=== PATIENT | female | born 1950 | race Caucasian/White ===

== ENCOUNTER → 2016-12-17 | Outpatient (CLI) | payer MEDICARE, OTHER | END | disposition home or self-care (01) | LOC: XY 10:06 | DX: I63.8 Other cerebral infarction (principal) | CPT/HCPCS: 93886 ==

== ENCOUNTER → 2016-12-31 | Outpatient (CLI) | payer MEDICARE, OTHER ==
[2016-12-31 13:59] LABS: Basophils # (auto) 0.1 uL; Basophils % (auto) 0.8 % (0.0-2.0); Eosinophils # (auto) 0.4 uL; Eosinophils % (auto) 4.4 % (0.0-7.0); Hematocrit 46.2 % (36.0-46.0); Hemoglobin 14.7 g/dL (12.2-16.2); Lymphocytes # (auto) 3.1 uL; Lymphocytes % (auto) 34.1 % (10.0-50.0); Mean Corpuscular Hemoglobin 30.9 pg (28.0-32.0); Mean Corpuscular Hgb Conc. 31.8 g/dL (32.0-36.0); Mean Corpuscular Volume 97.1 fL (80.0-100.0); Mean Platelet Volume 8.3 fL (7.4-10.4); Monocytes # (auto) 0.8 uL; Monocytes % (auto) 8.4 % (0.0-12.0); Neutrophils # (auto) 4.7 uL; Neutrophils % (auto) 52.3 % (37.0-80.0); Platelet Count (auto) 315 10^3/uL (140-450); Red Cell Distribution Width 13.3 % (11.6-16.0); White Blood Cell 8.9 10^3/uL (4.4-10.8)
[2016-12-31 14:34] LABS: Urine Bilirubin Negative (Negative); Urine Blood Negative /uL (Negative); Urine Color Yellow (Yellow); Urine Glucose Normal (Normal); Urine Ketone Negative (Negative); Urine Mucus FEW (None Seen); Urine Nitrite Negative (Negative); Urine RBC 1 /hpf (0 - 4); Urine Squamous Epithelial Cell FEW /hpf (<5); Urine Urobilinogen Normal (Negative)
[2016-12-31 15:00] LABS: Albumin 3.7 g/dL (3.4-5.0); BUN/Creatinine Ratio 25.3; Bilirubin, Total 0.5 mg/dL (0.2-1.0); Calcium 9.5 mg/dL (8.5-10.1); Potassium 3.9 mmol/L (3.5-5.1); Total Protein 7.6 g/dL (6.4-8.2)
== END | disposition home or self-care (01) ==
LOC: LAB 13:32
DX: I10 Essential (primary) hypertension (principal)
CPT/HCPCS: 36415; 80053; 80061; 81001; 82270; 84443; 85025

== ENCOUNTER 2017-02-28 08:14 | Day surgery (SDC) | payer MEDICARE, OTHER ==
[2017-02-26 16:58] LABS: Basophils # (auto) 0.1 uL; Basophils % (auto) 0.6 % (0.0-2.0); Eosinophils # (auto) 0.3 uL; Eosinophils % (auto) 3.2 % (0.0-7.0); Hematocrit 45.8 % (36.0-46.0); Hemoglobin 15.3 g/dL (12.2-16.2); Lymphocytes # (auto) 2.8 uL; Lymphocytes % (auto) 25.9 % (10.0-50.0); Mean Corpuscular Hemoglobin 32.2 pg (28.0-32.0); Mean Corpuscular Hgb Conc. 33.4 g/dL (32.0-36.0); Mean Corpuscular Volume 96.3 fL (80.0-100.0); Mean Platelet Volume 8.6 fL (7.4-10.4); Monocytes # (auto) 1.1 uL; Neutrophils # (auto) 6.5 uL; Neutrophils % (auto) 60.3 % (37.0-80.0); Platelet Count (auto) 324 10^3/uL (140-450); Red Cell Distribution Width 13.9 % (11.6-16.0); White Blood Cell 10.7 10^3/uL (4.4-10.8)
[2017-02-26 17:06] LABS: INR 0.93 (0.9-1.15); Partial Thromboplastin Time 25.2 sec (22.64-33.71)
[2017-02-28] MEDS ORDERED: LIDOCAINE VISCOUS 2% 15ML UD ONE (08:53)
[2017-02-28] MEDS ORDERED: SODIUM CHLORIDE LOCK 10 ML ONE (08:53)
[2017-02-28] MEDS ORDERED: diphenhdrAMINE HCL 50 MG/1 ML VL ONE (08:55)
[2017-02-28] MEDS: MIDAZOLAM HCL 5 MG/ML-1ML VIAL ONE ×5 (08:58→09:23)
[2017-02-28] MEDS: fentaNYL CITRATE 100 MCG/2 ML VL ONE ×5 (08:58→09:23)
[2017-02-28 10:10] VITALS: BP 146/90
== END 2017-02-28 10:10 ==
LOC: GI 08:14
PROVIDERS: ATTEND Internal Medicine Gastroenterology
DX: K63.5 Polyp of colon (principal); K57.30 Diverticulosis of large intestine without perforation or abscess without bleeding; K64.8 Other hemorrhoids; Q27.33 Arteriovenous malformation of digestive system vessel; Q28.2 Arteriovenous malformation of cerebral vessels; E66.9 Obesity, unspecified; M19.90 Unspecified osteoarthritis, unspecified site
CPT/HCPCS: 36415; 43235; 45385; 85025; 85610; 85730; J1200; J2250; J3010; J7030

== ENCOUNTER → 2019-05-01 | Outpatient (CLI) | payer MEDICARE, OTHER ==
[~2019-05-01] MED LIST: LISI-646 PO; SIMV-8 PO
[2019-05-01 15:38] LABS: Basophils # (auto) 0.1 uL; Basophils % (auto) 1.3 % (0.0-2.0); Eosinophils # (auto) 0.3 uL; Eosinophils % (auto) 3.8 % (0.0-7.0); Hematocrit 46.9 % (36.0-46.0); Hemoglobin 15.6 g/dL (12.2-16.2); Lymphocytes # (auto) 2.6 uL; Lymphocytes % (auto) 31.4 % (10.0-50.0); Mean Corpuscular Hemoglobin 32.2 pg (28.0-32.0); Mean Corpuscular Hgb Conc. 33.3 g/dL (32.0-36.0); Mean Corpuscular Volume 96.5 fL (80.0-100.0); Monocytes # (auto) 0.7 uL; Monocytes % (auto) 8.8 % (0.0-12.0); Neutrophils # (auto) 4.5 uL; Neutrophils % (auto) 54.7 % (37.0-80.0); Platelet Count (auto) 270 10^3/uL (140-450); Red Blood Cells 4.86 10^6/uL (4.0-5.20); Red Cell Distribution Width 13.8 % (11.8-14.3); White Blood Cell 8.3 10^3/uL (4.4-10.8)
[2019-05-01 15:54] LABS: Albumin 3.8 g/dL (3.4-5.0); Calcium 9.7 mg/dL (8.5-10.1); Potassium 4.3 mmol/L (3.5-5.1)
[2019-05-01 16:07] LABS: BUN/Creatinine Ratio 20.3; Bilirubin, Total 0.5 mg/dL (0.2-1.0)
[2019-05-01 16:11] LABS: INR 0.91 (0.9-1.15); Partial Thromboplastin Time 24.9 sec (23.64-32.05)
[2019-05-01 16:47] LABS: Urine Bacteria NONE SEEN /hpf (None Seen); Urine Blood Negative /uL (Negative); Urine Specific Gravity 1.017 (1.001-1.035); Urine WBC 8 /hpf (0 - 5)
== END | disposition home or self-care (01) ==
LOC: LAB 15:16
PROVIDERS: ATTEND Family Medicine
DX: E78.49 Other hyperlipidemia (principal); E66.01 Morbid (severe) obesity due to excess calories; I10 Essential (primary) hypertension; K92.1 Melena
CPT/HCPCS: 36415; 80053; 80061; 81001; 84443; 85025; 85610; 85730

== ENCOUNTER → 2021-02-17 | Outpatient (CLI) | payer MEDICARE, OTHER ==
[2021-02-17 15:11] LABS: Basophils # (auto) 0.1 10 ^3/uL (0-0.2); Basophils % (auto) 0.9 % (0.0-2.0); Eosinophils # (auto) 0.4 10 ^3/uL (0-0.8); Eosinophils % (auto) 4.3 % (0.0-7.0); Hematocrit 45.6 % (36.0-46.0); Hemoglobin 15.3 g/dL (12.2-16.2); Lymphocytes # (auto) 2.9 10 ^3/uL (0.4-5.4); Lymphocytes % (auto) 29.4 % (10.0-50.0); Mean Corpuscular Hemoglobin 32.5 pg (28.0-32.0); Mean Corpuscular Hgb Conc. 33.6 g/dL (32.0-36.0); Mean Corpuscular Volume 96.6 fL (80.0-100.0); Monocytes % (auto) 10.3 % (0.0-12.0); Neutrophils # (auto) 5.5 10 ^3/uL (1.6-8.6); Neutrophils % (auto) 55.1 % (37.0-80.0); Nucleated Red Blood Cells % 0.2 %; Platelet Count (auto) 257 10^3/uL (140-450); Red Blood Cells 4.72 10^6/uL (4.0-5.20); Red Cell Distribution Width 13.7 % (11.8-14.3)
[2021-02-17 15:21] LABS: Urine Bacteria FEW /hpf (None Seen); Urine Blood Negative /uL (Negative); Urine Specific Gravity 1.012 (1.001-1.035); Urine WBC 44 /hpf (0 - 5)
[2021-02-17 16:22] LABS: Albumin 3.4 g/dL (3.4-5.0); BUN/Creatinine Ratio 27.3; Bilirubin, Total 0.4 mg/dL (0.2-1.0); Calcium 9.1 mg/dL (8.5-10.1); Total Protein 7.3 g/dL (6.4-8.2)
== END | disposition home or self-care (01) ==
LOC: LAB 14:57
PROVIDERS: ATTEND Student in an Organized Health Care Education/Training Program
DX: I10 Essential (primary) hypertension (principal); E78.49 Other hyperlipidemia; R73.9 Hyperglycemia, unspecified
CPT/HCPCS: 36415; 80053; 80061; 81001; 83036; 84443; 85025

== ENCOUNTER 2025-01-08 18:34 | Inpatient (IN) | payer MEDICARE, OTHER ==
[~2025-01-08] VITALS: Ht 162.6 cm; Wt 97.2 kg
[~2025-01-08 18:34] MED LIST changes: -LISI-646 PO; +LISI20TA56 PO; -SIMV-8 PO; +SIMV20TA20 PO
--- NOTE | 2025-01-08 18:53 | ED.PDOC ---
Altered Mental Status HPI Comments 74-year-old female came to emergency room by EMS for hypotension/altered level of consciousness. Per EMS, patient picked up at a [facility] where patient is currently being treated for UTI. Patient has history of hypertension, dyslipidemia, and CVA with the right sided deficits. Was noted by family members the patient has been acting altered and confused with a past few days whenever the call her on the phone. Upon arrival of paramedics, blood sugars 129, saturating 97% at 2 liters/minute, and was hypotensive at 56/43 mmHg. Patient was given 200cc IV fluids and it improved to 86/49 mmHg. When questioned, patient denies any subjective complaints Chief Complaint: Low Blood Pressure Time Seen by MD: 18:51 Reviewed Notes: Spool Winder Notes Allergies: Coded Allergies: NO KNOWN ALLERGIES (Unverified , 03/24/19) Home Meds Reported Medications Simvastatin (Simvastatin) 20 Mg Tab, 20 MG PO DAILY for 30 Days 03/24/19 Lisinopril (Lisinopril) 20 Mg Tab, 20 MG PO DAILY for 30 Days, MG 03/24/19 Information Source: Patient, Emergency Med Personnel Mode of Arrival: EMS Severity: Unable to Care for Self Timing: Days Duration: Intermittent Quality: Decreased Alertness, Change in Behavior, Confusion History of: CVA Review of Systems REVIEW OF SYSTEMS: No fever, no chills, or fatigue HEENT: No sore throat, no earache, no congestion, no neck pain. Cardiac: No chest pain. No palpitations. Lungs: No shortness of breath, no cough. GI: No nausea, no vomiting, no diarrhea, no constipation, no abdominal pain : No dysuria, frequency, or urgency. No hematuria. Musculoskeletal: No joint pain , no joint swelling, no extremity edema. Skin: No rash, no itching. Neuro: No headache, no dizziness, no weakness Vital Signs Vital Signs Date Time Temp Pulse Resp B/P (MAP) Pulse Ox O2 Delivery O2 Flow Rate FiO2 01/08/25 20:00 97.8 72 18 91/32 (51) 100 97.8 01/08/25 19:50 Nasal Cannula* 2 28 Physical Exam General: Awake, alert and oriented. No acute distress. Skin: Skin in warm, dry and intact. Appropriate color for ethnicity. Nailbeds pink with no cyanosis. HEENT: The head is normocephalic and atraumatic. Conjunctivae are clear without exudates or hemorrhage. Sclera is non-icteric. EOM are intact. No signs of nystagmus. Eyelids are normal in appearance without swelling or lesions. Oral mucosa is pink and moist Neck: The neck is supple with normal range of motion. No JVD. Cardiac: Heart rate and rhythm are normal. No murmurs, gallops, or rubs are auscultated. Respiratory: No signs of respiratory distress. Lung sounds are clear in all lobes bilaterally without rales, ronchi, or wheezes. Abdominal: Abdomen is soft, non-tender with distention. Bowel sounds are present and normoactive in all four quadrants. Extremities: Upper and lower extremities are atraumatic in appearance without deformity or edema. Neurological: The patient is awake, alert and oriented to person, place, and time with normal speech. Speech is clear. There is no facial asymmetry. Psychiatric: Appropriate mood and affect. Good judgement and insight. No visual or auditory hallucinations. Past Medical History PAST MEDICAL HISTORY: CVA (Right-sided deficits), High Lipids, HTN, UTI'S Surgical History: Denies all surgeries EXPEDITER History: Denies all EXPEDITER Hx Family History Family History: Reviewed,noncontributory to illness Social History Smoker: Non-Smoker Alcohol: Denies ETOH Use Drugs: Denies Drug Use Lives In: Jail EKG EKG : Pulse Rate (adult): 72 Cardiac Rhythm: NSR Comments Ventricular trigeminy, no STEMI Was a procedure done? Was a procedure done?: No Differential Diagnosis (ALOC) Differential Diagnosis: Dehydration, Encephalopathy, Meningitis, Sepsis, Hypoxemia, CVA, Renal Failure Other Differential Diagnosis Sepsis, UTI, hypovolemia, cardiogenic shock, prerenal azotemia, other X-Ray, Labs, Meds, VS Vital Signs Date Time Temp Pulse Resp B/P (MAP) Pulse Ox O2 Delivery O2 Flow Rate FiO2 01/08/25 20:00 97.8 72 18 91/32 (51) 100 97.8 01/08/25 19:50 Nasal Cannula* 2 28 01/08/25 18:53 72 01/08/25 18:41 72 01/08/25 18:39 97.9 70 20 86/44 (58) 97 Lab Test 01/08/25 19:56 01/08/25 19:30 01/08/25 19:15 01/08/25 00:00 Range/Units Urine Color Light-yellow Yellow Urine Clarity Clear Clear Urine pH 5.0 5.0-9.0 Urine Specific [place] 1.011 1.001-1.035 Urine Protein Negative Negative Urine Ketones Negative Negative Urine Blood Negative Negative /uL Urine Nitrite Negative Negative Urine Bilirubin Negative Negative Urine Urobilinogen Normal Negative mg/dL Urine Leukocyte Esterase Negative Negative /uL Urine RBC <1 0 - 4 /hpf Urine Microscopic WBC 1 0-5 /HPF Urine Squamous Epithelial Cells Few <5 /hpf Urine Bacteria None seen None Seen /hpf Urine Hyaline Casts Many 0 - 2 /lpf Urine Mucus Few None Seen Urine Glucose Normal Normal mg/dL Lactic Acid Level 2.0 0.4-2.0 mmol/L White Blood Count 15.4 H 4.4-10.8 10^3/uL Red Blood Count 3.63 L 4.0-5.20 10^6/uL Hemoglobin 12.0 L 12.2-16.2 g/dL Hematocrit 35.1 L 36.0-46.0 % Mean Corpuscular Volume 96.7 80.0-100.0 fL Mean Corpuscular Hemoglobin 32.9 H 28.0-32.0 pg Mean Corpuscular Hemoglobin Concent 34.1 32.0-36.0 g/dL Red Cell Distribution Width 13.1 11.8-14.3 % Platelet Count 383 140-450 10^3/uL Mean Platelet Volume 7.3 6.9-10.8 fL Neutrophils (%) (Auto) 83.4 H 37.0-80.0 % Lymphocytes (%) (Auto) 7.2 L 10.0-50.0 % Monocytes (%) (Auto) 6.2 0.0-12.0 % Eosinophils (%) (Auto) 2.6 0.0-7.0 % Basophils (%) (Auto) 0.6 0.0-2.0 % Neutrophils # (Auto) 12.8 H 1.6-8.6 10 ^3/uL Lymphocytes # (Auto) 1.1 0.4-5.4 10 ^3/uL Monocytes # (Auto) 1.0 0-1.3 10 ^3/uL Eosinophils # (Auto) 0.4 0-0.8 10 ^3/uL Basophils # (Auto) 0.1 0-0.2 10 ^3/uL Nucleated Red Blood Cells 0.0 % Sodium Level 140 136-145 mmol/L Potassium Level 4.0 3.5-5.1 mmol/L Chloride Level 102 98-107 mmol/L Carbon Dioxide Level 29 20-31 mmol/L Anion Gap 9 5-15 Blood Urea Nitrogen 80 *H 9-23 mg/dL Creatinine 2.31 H 0.550-1.02 mg/dL Glomerular Filtration Rate Calc 21 >90 mL/min BUN/Creatinine Ratio 34.6 H 10.0-20.0 Serum Glucose 97 74-106 mg/dL Calcium Level 9.2 8.7-10.4 mg/dL Total Bilirubin 0.5 0.2-1.0 mg/dL Aspartate Amino Transferase (AST) 17 13-40 U/L Alanine Aminotransferase (ALT) 10 7-40 U/L Alkaline Phosphatase 72 46-116 U/L Total Protein 6.8 5.7-8.2 g/dL Albumin 4.0 3.2-4.8 g/dL Influenza Type A Antigen Pending Influenza Type B Antigen Pending SARS-CoV-2 Antigen (Rapid) Pending Current Medications Medications (Trade) Dose Ordered Sig/Gonzalo Route Start Time Stop Time Status Last Admin Sodium Chloride 1,000 ml @ 130 mls/hr [id number] ONCE IV 01/08/25 20:00 01/09/25 03:41 01/08/25 20:00 EXAM: XY CHEST PORTABLE CLINICAL HISTORY: Suspected Sepsis TECHNIQUE: Single AP view of the chest WID: COMPARISON: None FINDINGS: Lines and tubes: None Chest: The heart size and pulmonary vasculature is within normal limits. No pleural effusion, pneumothorax, or consolidation. The osseous structures are grossly intact. IMPRESSION: No acute cardiopulmonary abnormality. X-Ray, Labs, Meds, VS Comment Chest x-ray independent interpretation-no acute disease Time of 1ST Reevaluation: 18:44 Reevaluation 1ST: Unchanged Patient Education/Counseling: Diagnosis, Treatment Family Education/Counseling: No Family Present Departure 1 Departure Time of Disposition: 21:13 Impression: Primary Impression: MAXWELL (acute kidney injury) Additional Impressions: Sepsis Suspected sepsis Disposition: 09 ADMITTED INPATIENT Condition: Stable Comments 74-year-old female who presented to the ED, was found to be hypotensive. There is leukocytosis and acute renal failure found on CBC and CMP. Patient was start ed on IV fluids and antibiotics in the emergency department. She received 2 L IV fluid bolus by EMS prior to arrival. Patient admitted for further treatment, evaluation and monitoring. Extensive evaluation was performed in attempt to identify or rule out: (See differential diagnosis section) The following tests were ordered, and results were reviewed by me: (See diagnostic results section) The following test were independently interpreted by me: Chest x-ray, EKG I reviewed and agreed with the following test results read by other providers: Chest x-ray I reviewed the following notes from the pt's past medical encounters: N/A Additional information was gathered from interviewing the following independent historians: EMS personnel, patient's son Discussion of management or test interpretation with external physician/other qualified health health care coach: N/A Addressed an acute or chronic illness that poses a threat to life or bodily function: Acute renal failure, sepsis Decision regarding hospitalization or escalation of hospital level of care: Risk and benefits of admission for further treatment of patient's condition was considered. Due to patient's current clinical condition, high risk of decline and poor outcome if discharged and need for further inpatient management and monitoring, patient will be admitted to the hospital. Drug therapy requiring intensive monitoring for toxicity: N/A Parenteral controlled substances: N/A Decision regarding elective major surgery with identified patient or procedure risk factors: N/A Decision regarding emergency major surgery: N/A Decision not to resuscitate or to de-escalate care because of poor prognosis: N/A Diagnosis or treatment significantly limited by social determinants of health: N/A Critical Care Note Critical Care Time?: Yes (35 min-critical care time only) Critical care comment: Hypotension, acute ureteral failure Due to a high probability of clinically significant, life threatening deterioration, the patient required my highest level of preparedness to intervene emergently and I personally spent this critical care time directly and personally managing the patient. This critical care time included obtaining a history; examining the patient; pulse oximetry; ordering and review of studies; arranging urgent treatment with development of a management plan; evaluation of patient's response to treatment; frequent reassessment; and, discussions with other providers. This critical care time was performed to assess and manage the high probability of imminent, life-threatening deterioration that could result in multi-organ failure. It was exclusive of separately billable procedures and treating other patients and teaching time. Please see my other sections and the rest of the note for further information on patient assessment and treatment. Stability Stability form required: No I personally scribed for BLANE CRANE MD ([email or web address]) on 01/08/25 at 18:53. Electronically submitted by Jeremi Redmond ([employer]). I personally scribed for BLANE CRANE MD ([email or web address]) on 01/08/25 at 19:25. Electronically submitted by Jeremi Redmond ([email or web address]). BLANE CRANE MD Jan 08, 2025 18:53
--- NOTE | 2025-01-08 19:22 | DVH ---
EXAM: XY CHEST PORTABLE CLINICAL HISTORY: Suspected Sepsis TECHNIQUE: Single AP view of the chest WID: COMPARISON: None FINDINGS: Lines and tubes: None Chest: The heart size and pulmonary vasculature is within normal limits. No pleural effusion, pneumothorax, or consolidation. The osseous structures are grossly intact. IMPRESSION: No acute cardiopulmonary abnormality.
[2025-01-08 19:58] LABS: Basophils # (auto) 0.1 10 ^3/uL (0-0.2); Basophils % (auto) 0.6 % (0.0-2.0); Eosinophils # (auto) 0.4 10 ^3/uL (0-0.8); Eosinophils % (auto) 2.6 % (0.0-7.0); Hematocrit 35.1 % (36.0-46.0); Lymphocytes # (auto) 1.1 10 ^3/uL (0.4-5.4); Lymphocytes % (auto) 7.2 % (10.0-50.0); Mean Corpuscular Hemoglobin 32.9 pg (28.0-32.0); Mean Corpuscular Hgb Conc. 34.1 g/dL (32.0-36.0); Mean Corpuscular Volume 96.7 fL (80.0-100.0); Monocytes % (auto) 6.2 % (0.0-12.0); Neutrophils # (auto) 12.8 10 ^3/uL (1.6-8.6); Neutrophils % (auto) 83.4 % (37.0-80.0); Platelet Count (auto) 383 10^3/uL (140-450); Red Blood Cells 3.63 10^6/uL (4.0-5.20); Red Cell Distribution Width 13.1 % (11.8-14.3); White Blood Cell 15.4 10^3/uL (4.4-10.8)
[2025-01-08] MEDS: SODIUM CHLORIDE 0.9% 1,000 ML IV ONE (20:00)
[2025-01-08] MEDS: SODIUM CHLORIDE 0.9% 1,650 ML IV ONE (20:00)
[2025-01-08 20:05] LABS: Urine Bacteria None Seen /hpf (None Seen)
[2025-01-08 20:14] LABS: Alanine Aminotransferase 10 U/L (7-40); Alkaline Phosphatase 72 U/L (46-116); Anion Gap 9 (5-15); Aspartate Aminotransferase 17 U/L (13-40); BUN/Creatinine Ratio 34.6 (10.0-20.0); Calcium 9.2 mg/dL (8.7-10.4); Carbon Dioxide 29 mmol/L (20-31); Chloride 102 mmol/L (98-107); Glucose 97 mg/dL (74-106); Sodium 140 mmol/L (136-145)
[2025-01-08 20:15] LABS: Bilirubin, Total 0.5 mg/dL (0.2-1.0); Total Protein 6.8 g/dL (5.7-8.2)
[2025-01-08 20:17] LABS: Urine Blood Negative /uL (Negative); Urine Clarity Clear (Clear); Urine Color Light-Yellow (Yellow); Urine Hyaline Cast MANY /lpf (0 - 2); Urine Mucus FEW (None Seen); Urine Protein, UAD Negative (Negative); Urine Specific Gravity 1.011 (1.001-1.035); Urine Squamous Epithelial Cell FEW /hpf (<5); Urine Urobilinogen Normal (Negative); Urine WBC 1 /HPF (0-5)
[2025-01-08 20:40] LABS: Blood Urea Nitrogen 80 mg/dL (9-23)
[2025-01-08] MEDS: cefTRIAXone 1GM/50ML D5W 50 ML IV ONE (21:11)
[2025-01-08 21:36] LABS: Rapid Influenza A Negative (Negative); Rapid Influenza B Negative (Negative)
[2025-01-08 21:37] LABS: COVID19 ANTIGEN SOFIA FIA NEGATIVE (NEGATIVE)
[2025-01-08] MEDS: VANCOMYCIN 1GM/250ML KIT 250 ML IV ONE (21:41)
[2025-01-09] MEDS: MELATONIN 5 MG TAB PO ONE (00:08)
--- NOTE | 2025-01-09 00:12 | DVHHP2 ---
History of Present Illness Reason for Visit: Hypotension History of Present Illness The patient is a 74 years old female with past medical history of CVA with right-sided deficit, hyperlipidemia, hypertension, and UTIs who presented to [facility] ED for evaluation of altered level of consciousness. Patient's son reports she was acting altered, confusion state, getting worse that prompted this visit. Patient was seen and evaluated in the ED, laboratory data shows WBC 15.4 hemoglobin 12.0, hematocrit 35.1, platelets 383, sodium 140, potassium 4.0, BUN 80, creatinine 2.31, GFR 21, glucose 97, blood pressure 91/53, heart rate 83, temperature 97.8 F, O2 saturation 96% on oxygen. Patient was given 200 cc of IV fluid, please see medication orders section in the computer. On my assessment, son at bedside, patient denied chest pain, no headache, no diaphoresis, no nausea, no vomiting, no fever, no chills. Patient was admitted for further evaluation and medical management. Past Medical History CVA (Right-sided deficits), High Lipids, HTN, UTI'S Past Surgical History Denies all surgeries Family History Reviewed, noncontributory to the management of this case. Past Social History The patient lives at home, denies smoking, alcohol or illicit drugs abuse. Review of Systems Constitutional: Yes: Weakness; No: Fever, Chills, Sweats, Malaise, Other Eyes: No: Pain, Vision change, Conjunctivae inflammation, Eyelid inflammation, Other, Redness ENT: No: Ear pain, Ear discharge, Nose pain, Nose discharge, Nose congestion, Mouth pain, Mouth swelling, Throat pain, Throat swelling, Other Respiratory: No: Cough, Dry, Shortness of breath, SOB with excertion, Wheezing, Hemoptysis, Pleuritic Pain, Sputum, Wheezing, Other Cardiovascular: No: Chest Pain, Palpitations, Orthopnea, Paroxysmal Noc. Dyspnea, Edema, Lt Headedness, Other Gastrointestinal: No: Nausea, Vomiting, Abdominal Pain, Diarrhea, Constipation, Melena, Hematochezia, Other Genitourinary: No Dysuria, No Frequency, No Incontinence, No Hematuria, No Retention, No Other Musculoskeletal: No: other, neck pain, shoulder pain, arm pain, back pain, hand pain, leg pain, foot pain Skin: No: Rash, Lesions, Jaundice, Bruising, Other Neurological: Other (Altered level of consciousness); No: Weakness, Numbness, Incoordination, Change in speech, Confusion, Seizures Allergies: Coded Allergies: NO KNOWN ALLERGIES (Unverified , 03/24/19) Exam Vital Signs Vital Signs Date Time Temp Pulse Resp B/P (MAP) Pulse Ox O2 Delivery O2 Flow Rate FiO2 01/09/25 00:00 68 16 90/52 (65) 98 01/08/25 20:00 97.8 97.8 01/08/25 19:50 Nasal Cannula* 2 28 General Appearance: Alert, Oriented X3, Cooperative, No acute distress HEENT: Atraumatic, PERRLA, EOMI, Mucous membr. moist/pink Respiratory: Clear to auscultation, Normal air movement Cardiovascular: Regular rate, Normal S1, Normal S2, No murmurs Abdominal: Normal bowel sounds, Soft, No tenderness, No hepatospenomegaly, No masses Extremities: No clubbing, No cyanosis, No edema, Normal pulses, No tenderness/swelling Skin: No rashes, No breakdown, No significant lesion Neuro: Normal speech, Normal tone, Sensation intact, Cranial nerves 3-12 NL, Reflexes 2+, Other (Generalized weakness) Psych/Mental Status: Mental status NL, Mood NL Labs/Xrays Labs Test 01/08/25 19:56 01/08/25 19:30 01/08/25 19:15 01/08/25 00:00 Range/Units Urine Color Light-yellow Yellow Urine Clarity Clear Clear Urine pH 5.0 5.0-9.0 Urine Specific [place] 1.011 1.001-1.035 Urine Protein Negative Negative Urine Ketones Negative Negative Urine Blood Negative Negative /uL Urine Nitrite Negative Negative Urine Bilirubin Negative Negative Urine Urobilinogen Normal Negative mg/dL Urine Leukocyte Esterase Negative Negative /uL Urine RBC <1 0 - 4 /hpf Urine Microscopic WBC 1 0-5 /HPF Urine Squamous Epithelial Cells Few <5 /hpf Urine Bacteria None seen None Seen /hpf Urine Hyaline Casts Many 0 - 2 /lpf Urine Mucus Few None Seen Urine Glucose Normal Normal mg/dL Lactic Acid Level 2.0 0.4-2.0 mmol/L White Blood Count 15.4 H 4.4-10.8 10^3/uL Red Blood Count 3.63 L 4.0-5.20 10^6/uL Hemoglobin 12.0 L 12.2-16.2 g/dL Hematocrit 35.1 L 36.0-46.0 % Mean Corpuscular Volume 96.7 80.0-100.0 fL Mean Corpuscular Hemoglobin 32.9 H 28.0-32.0 pg Mean Corpuscular Hemoglobin Concent 34.1 32.0-36.0 g/dL Red Cell Distribution Width 13.1 11.8-14.3 % Platelet Count 383 140-450 10^3/uL Mean Platelet Volume 7.3 6.9-10.8 fL Neutrophils (%) (Auto) 83.4 H 37.0-80.0 % Lymphocytes (%) (Auto) 7.2 L 10.0-50.0 % Monocytes (%) (Auto) 6.2 0.0-12.0 % Eosinophils (%) (Auto) 2.6 0.0-7.0 % Basophils (%) (Auto) 0.6 0.0-2.0 % Neutrophils # (Auto) 12.8 H 1.6-8.6 10 ^3/uL Lymphocytes # (Auto) 1.1 0.4-5.4 10 ^3/uL Monocytes # (Auto) 1.0 0-1.3 10 ^3/uL Eosinophils # (Auto) 0.4 0-0.8 10 ^3/uL Basophils # (Auto) 0.1 0-0.2 10 ^3/uL Nucleated Red Blood Cells 0.0 % Sodium Level 140 136-145 mmol/L Potassium Level 4.0 3.5-5.1 mmol/L Chloride Level 102 98-107 mmol/L Carbon Dioxide Level 29 20-31 mmol/L Anion Gap 9 5-15 Blood Urea Nitrogen 80 *H 9-23 mg/dL Creatinine 2.31 H 0.550-1.02 mg/dL Glomerular Filtration Rate Calc 21 >90 mL/min BUN/Creatinine Ratio 34.6 H 10.0-20.0 Serum Glucose 97 74-106 mg/dL Calcium Level 9.2 8.7-10.4 mg/dL Total Bilirubin 0.5 0.2-1.0 mg/dL Aspartate Amino Transferase (AST) 17 13-40 U/L Alanine Aminotransferase (ALT) 10 7-40 U/L Alkaline Phosphatase 72 46-116 U/L Total Protein 6.8 5.7-8.2 g/dL Albumin 4.0 3.2-4.8 g/dL Influenza Type A Antigen Negative Negative Influenza Type B Antigen Negative Negative SARS-CoV-2 Antigen (Rapid) Negative NEGATIVE PATIENT: RACHEL ANDERSONCCT: [id number] UNIT: [id number] : 1950 LOC: ER ROOM / BED: / AGE / SEX: 74 / F ADM STATUS: REG ER SERVICE 41 ORDERING PHYSICIAN: BLANE CRANE MD PROCEDURE(s): CXRP - CHEST PORTABLE REASON: Suspected Sepsis ORDER NUMBER(s): [id number], ACCESSION NUMBER(s): [id number] EXAM: XY CHEST PORTABLE CLINICAL HISTORY: Suspected Sepsis TECHNIQUE: Single AP view of the chest WID: COMPARISON: None FINDINGS: Lines and tubes: None Chest: The heart size and pulmonary vasculature is within normal limits. No pleural effusion, pneumothorax, or consolidation. The osseous structures are grossly intact. IMPRESSION: No acute cardiopulmonary abnormality. Assessment/Plan Assessment/Plan MAXEWLL (acute kidney injury) Hypotension Altered mental status Leukocytosis, unspecified Generalized weakness Plan 1. Admit to telemetry unit 2. Breathing treatment 3. Pain control management 4. IV antibiotic management 5. Management of fluids and electrolytes 6. Consultation for Cardiology 7. Diagnostic test chest x-ray 8. DVT prophylaxis-on SCDs 9. Repeat labs CBC, CMP in a.m. 10. Home medication reviewed and reconciled 11. Continue with current medical management 12. Treatment plan discussed with patient and RN. Patient verbalized understanding. Plan discussed with: Patient, Other (RN) My Orders Orders - EMILIA COMBS DNP Procedure Category Date Status Time Complete Blood Count LAB 01/09/25 Verified 04:00 Comprehensive LAB 01/09/25 Verified Metabolic Panel 04:00 Ceftriaxone Ivpb PHA 01/09/25 Verified Rocephin 09:00 *Dr. [facility] CONS 01/09/25 Verified -[place] 00:02 Admit ADMIT 01/09/25 Verified 00:02 Allergies KATYA 01/09/25 Verified 00:02 Code Status CODE 01/09/25 Verified 00:02 Sodium Chloride Lock PHA 01/09/25 Verified (Saline Lock Ns) 06:00 Oxygen Per Hour RT 01/09/25 Verified 00:02 Hydrocodone-Acet PHA 01/09/25 Verified 5/325mg Tab (Artemas 00:15 Ondansetron Hcl PHA 01/09/25 Verified (Zofran) 00:15 Docusate Sodium PHA 01/09/25 Verified Capsule (Colace 00:15 Fall Risk Precautions KATYA 01/09/[address] 00:02 Complete Blood Count LAB 01/10/25 Verified 04:00 Comprehensive LAB 01/10/25 Verified Metabolic Panel 04:00 Cardiac DIET 01/09/25 Verified Diet-2gna,Lofat,Lochol Breakfast Condition: Serious KATYA 01/09/25 Verified 00:02 Acetaminophen Tablet PHA 01/09/25 Verified (Tylenol Tablet) 00:15 Sequential KATYA 01/09/25 Verified Compression Device Nitroglycerin PHA 01/09/25 Verified Sublingual (Ntrostat 00:15 Morphine Sulfate PHA 01/09/25 Verified Injection 00:15 Notify Md Of Changes [facility] 01/09/25 Verified From Base 00:02 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/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 For [facility] 01/09/25 Verified 24 Hours 00:02 Emergency Dysrhythmia [facility] 01/09/25 Verified Protocol 00:02 Rhythm Strips Once [facility] 01/09/25 Verified Every Shift 00:02 Oxygen By Nasal RT 01/09/25 Verified Cannula 00:02 Apixaban (Eliquis) PHA 01/09/25 Verified 10:00 Problem List: (1) MAXWELL (acute kidney injury) (2) Hypotension (3) Altered mental status (4) Leukocytosis, unspecified (5) Generalized weakness Date of Service: Jan 09, 2025 Billing Provider: EMILIA COMBS DNP Common Visit Codes: [id number] INP/OBS CARE (HIGH) EMILIA COMBS DNP Jan 09, 2025 00:12
[2025-01-09] MEDS ORDERED: MORPHINE SULFATE INJ 2 MG/ml SYRG IV PRN (00:15)
[2025-01-09] MEDS ORDERED: NITROGLYCERIN 0.4 MG SL TAB SL PRN (00:15)
[2025-01-09] MEDS ORDERED: ONDANSETRON HCL 4 MG/2 ML VIAL IV PRN (00:15)
[2025-01-09] MEDS ORDERED: DOCUSATE SOD 100 MG CAP PO PRN (00:15)
[2025-01-09] MEDS ORDERED: HYDROcodone-ACET 5/325MG TAB PO PRN (00:15)
[2025-01-09] MEDS ORDERED: ACETAMINOPHEN 325 MG TAB PO PRN (00:15)
[2025-01-09] MEDS: SODIUM CHLORIDE 0.9% 500 ML IV ONE (03:17)
[2025-01-09] MEDS: SODIUM CHLOR 0.9% PF (SALINE LOCK) 10ML VIAL/SYR IV SCH (05:42)
[2025-01-09 08:00] VITALS: PULSE 71; RESP 17; O2SAT 95
[2025-01-09 08:01] LABS: Basophils # (auto) 0 10 ^3/uL (0-0.2); Basophils % (auto) 0.2 % (0.0-2.0); Eosinophils # (auto) 0.5 10 ^3/uL (0-0.8); Eosinophils % (auto) 3.4 % (0.0-7.0); Hematocrit 35.9 % (36.0-46.0); Lymphocytes # (auto) 1.2 10 ^3/uL (0.4-5.4); Lymphocytes % (auto) 9.1 % (10.0-50.0); Mean Corpuscular Hemoglobin 32.5 pg (28.0-32.0); Mean Corpuscular Hgb Conc. 33.5 g/dL (32.0-36.0); Monocytes # (auto) 1.2 10 ^3/uL (0-1.3); Monocytes % (auto) 8.6 % (0.0-12.0); Neutrophils # (auto) 10.5 10 ^3/uL (1.6-8.6); Neutrophils % (auto) 78.7 % (37.0-80.0); Platelet Count (auto) 331 10^3/uL (140-450); Red Cell Distribution Width 13.4 % (11.8-14.3); White Blood Cell 13.3 10^3/uL (4.4-10.8)
[2025-01-09 08:15] LABS: Alanine Aminotransferase 18 U/L (7-40); Albumin 3.8 g/dL (3.2-4.8); Alkaline Phosphatase 67 U/L (46-116); Anion Gap 8 (5-15); Aspartate Aminotransferase 26 U/L (13-40); BUN/Creatinine Ratio 33.9 (10.0-20.0); Bilirubin, Total 0.4 mg/dL (0.2-1.0); Calcium 9.3 mg/dL (8.7-10.4); Carbon Dioxide 26 mmol/L (20-31); Chloride 105 mmol/L (98-107); Glucose 98 mg/dL (74-106); Potassium 4.6 mmol/L (3.5-5.1); Sodium 139 mmol/L (136-145)
[2025-01-09 08:16] LABS: Blood Urea Nitrogen 58 mg/dL (9-23); Total Protein 6.4 g/dL (5.7-8.2)
[2025-01-09] MEDS: APIXABAN 5 MG TAB PO SCH (10:18)
--- NOTE | 2025-01-09 14:10 | DVHPN2 ---
Reviewed: Care Plan, H&P, Labs, Medications, Previous Orders, Radiology Changes from previous H/P or p: No Changes Eyes: No Pain, No Vision change, No Conjunctivae inflammation, No Eyelid inflammation, No Other, No Redness ENT: No Ear pain, No Ear discharge, No Nose pain, No Nose discharge, No Nose congestion, No Mouth pain, No Mouth swelling, No Throat pain, No Throat swelling, No Other Cardiovascular: No Chest Pain, No Palpitations, No Orthopnea, No Paroxysmal Noc. Dyspnea, No Edema, No Lt Headedness, No Other Respiratory: No Cough, No Dry, No Shortness of breath, No SOB with excertion, No Wheezing, No Hemoptysis, No Pleuritic Pain, No Sputum, No Other Gastrointestinal: No Nausea, No Vomiting, No Abdominal Pain, No Diarrhea, No Constipation, No Melena, No Hematochezia, No Other Genitourinary: No Dysuria, No Frequency, No Incontinence, No Hematuria, No Retention, No Other Musculoskeletal: No other, No neck pain, No shoulder pain, No arm pain, No back pain, No hand pain, No leg pain, No foot pain Skin: No Rash, No Lesions, No Jaundice, No Bruising, No Other Objective Vitals Vital Signs Date Time Temp Pulse Resp B/P (MAP) Pulse Ox O2 Delivery O2 Flow Rate FiO2 01/09/25 12:00 80 15 90/64 (73) 96 01/09/25 08:00 97.7 97.7 01/09/25 08:00 Room Air* 0 21 Intake/Output Intake and Output 01/09/25 07:00 Intake Total 1710 ml Output Total 1475 ml Balance 235 ml Intake IV Total 1710 ml Output Urine Total 1475 ml Medications Current Medications Medications Dose Ordered Sig/Gonzalo Route Start Time Stop Time Status Last Admin Dose Admin Ceftriaxone Sodium 50 ml @ 100 mls/hr Q24H IV 01/09/25 21:00 Sodium Chloride 10 ml Q8HR IV 01/09/25 06:00 01/09/25 05:42 10 ML Acetaminophen/ Hydrocodone Bitart 1 tab Q4HP PRN PO 01/09/25 00:15 Ondansetron HCl 4 mg Q4HP PRN IV 01/09/25 00:15 Docusate Sodium 100 mg BIDPRN PRN PO 01/09/25 00:15 Acetaminophen 650 mg Q6HP PRN PO 01/09/25 00:15 Nitroglycerin 0.4 mg Q5MINP PRN SL 01/09/25 00:15 Morphine Sulfate 2 mg Q30M PRN IV 01/09/25 00:15 Apixaban 5 mg BID PO 01/09/25 10:00 01/09/25 10:18 5 MG Laboratory Results Laboratory Tests 01/09/25 07:44 Chemistry Test 01/08/25 19:15 01/09/25 07:44 Albumin 4.0 g/dL (3.2-4.8) 3.8 g/dL (3.2-4.8) Calcium Level 9.2 mg/dL (8.7-10.4) 9.3 mg/dL (8.7-10.4) Total Protein 6.8 g/dL (5.7-8.2) 6.4 g/dL (5.7-8.2) LFT Test 01/08/25 19:15 01/09/25 07:44 Alanine Aminotransferase (ALT) 10 U/L (7-40) 18 U/L (7-40) Alkaline Phosphatase 72 U/L (46-116) 67 U/L (46-116) Aspartate Amino Transferase (AST) 17 U/L (13-40) 26 U/L (13-40) Total Bilirubin 0.5 mg/dL (0.2-1.0) 0.4 mg/dL (0.2-1.0) Urinalysis Test 01/08/25 19:56 Urine Color Light-yellow (Yellow) Urine Clarity Clear (Clear) Urine pH 5.0 (5.0-9.0) Urine Specific [place] 1.011 (1.001-1.035) Urine Protein Negative (Negative) Urine Ketones Negative (Negative) Urine Blood Negative /uL (Negative) Urine Nitrite Negative (Negative) Urine Bilirubin Negative (Negative) Urine Urobilinogen Normal mg/dL (Negative) Urine Leukocyte Esterase Negative /uL (Negative) Urine RBC <1 /hpf (0 - 4) Urine Microscopic WBC 1 /HPF (0-5) Urine Squamous Epithelial Cells Few /hpf (<5) Urine Bacteria None seen /hpf (None Seen) Urine Hyaline Casts Many /lpf (0 - 2) Urine Mucus Few (None Seen) Urine Glucose Normal mg/dL (Normal) Labs and/or images reviewed: Labs reviewed by me, Image(s) reviewed by me Assessment/Plan Assessment/Plan Sepsis unknown etiology: Blood cultures Rocephin Acute Generalized weakness Acute kidney injury versus CKD Hypotension Acute metabolic encephalopathy Leukocytosis Hypotension Hypercholesterolemia History of CVA with right-sided hemiplegia Sydnee test negative Flu test negative Time Spent 70 minutes Advanced care planning time 20 minutes Patient is full code Plan discussed with: Patient My Orders Orders - TAD KELSEY MD Procedure Category Date Status Time Blood Culture ADRIAN 01/09/25 Logged 14:07 Date of Service: Jan 09, 2025 Billing Provider: TAD KELSEY MD Common Visit Codes: [id number] CARE 30-74 MIN TAD KELSEY MD Jan 09, 2025 14:10
[2025-01-09 15:57] VITALS: BP 92/33; PULSE 64; RESP 26; TEMP 97.8; O2SAT 92
[2025-01-09 18:03] VITALS: PULSE 63; RESP 16; O2SAT 96
[2025-01-09] MEDS ORDERED: TORS20TA19 (18:33)
[2025-01-09] MEDS ORDERED: APIX5TAB (18:33)
[2025-01-09] MEDS ORDERED: GABA-1250 (18:33)
[2025-01-09 20:00] VITALS: PULSE 86; RESP 18; O2SAT 96
[2025-01-09] MEDS: cefTRIAXone 1GM/50ML D5W 50 ML IV SCH (20:00)
[2025-01-09] MEDS: SODIUM CHLORIDE 0.9% 1,000 ML IV SCH (20:45)
--- NOTE | 2025-01-09 20:47 | DVHINCON2 ---
Date of service: Jan 09, 2025 Reason for Consultation MAXWELL History of Present Illness 74 years old female with past medical history of CVA, dyslipidemia, hypertension, UTI, recent foot fracture, presented with chief complaints of altered mental status worsening memory as per the son who is bedside patient lives in a rehab on arrival she is found to be hypotensive she is getting IV fluids she is bed-bound Past Medical History As per HPI Past Surgical History As per HPI Allergies: Coded Allergies: NO KNOWN ALLERGIES (Unverified , 03/24/19) Home Meds Reported Medications Apixaban Base (ELIQUIS) 5 Mg Tab, 1 01/09/25 Gabapentin (Gabapentin) 300 Mg Cap 01/09/25 Torsemide Injection (Torsemide) 20 Mg Tab, 1 01/09/25 Simvastatin (Simvastatin) 20 Mg Tab, 20 MG PO DAILY for 30 Days 03/24/19 Lisinopril (Lisinopril) 20 Mg Tab, 20 MG PO DAILY for 30 Days, MG 03/24/19 Current Medications Current Medications Medications (Trade) Dose Ordered Sig/Gonzalo Route PRN Reason Start Time Stop Time Status Last Admin Ceftriaxone Sodium 50 ml @ 100 mls/hr Q24H IV 01/09/25 21:00 01/09/25 20:00 Sodium Chloride (Saline Lock Ns) 10 ml Q8HR IV 01/09/25 06:00 01/09/25 14:12 Acetaminophen/ Hydrocodone Bitart ([place] 5/325MG Tab) 1 tab Q4HP PRN PO MODERATE PAIN (4-6 PAIN SCALE) 01/09/25 00:15 Ondansetron HCl (Zofran) 4 mg Q4HP PRN IV NAUSEA / VOMITING 01/09/25 00:15 Docusate Sodium (Colace Capsule) 100 mg BIDPRN PRN PO FOR CONSTIPATION 01/09/25 00:15 Acetaminophen (Tylenol Tablet) 650 mg Q6HP PRN PO PAIN SCALE 1-3 OR TEMP>100.4 01/09/25 00:15 Nitroglycerin (Ntrostat Sublingual) 0.4 mg Q5MINP PRN SL FOR CHEST PAIN 01/09/25 00:15 Morphine Sulfate 2 mg Q30M PRN IV FOR CHEST PAIN 01/09/25 00:15 Apixaban (Eliquis) 5 mg BID PO 01/09/25 10:00 01/09/25 10:18 Family History: Alcoholism FH: cancer G8 BROTHER FH: throat cancer G8 SISTER Review of Systems As documented in HPI H&P Exam Vital Signs/I&O Vital Sign Date Time Temp Pulse Resp B/P (MAP) Pulse Ox O2 Delivery O2 Flow Rate FiO2 01/09/25 18:03 63 16 96 Room Air* 0 21 01/09/25 15:57 97.8 92/33 (52) 97.8 Intake and Output 01/08/25 01/09/25 19:00 07:00 Intake Total 1710 ml Output Total 1475 ml Balance 235 ml Intake IV Total 1710 ml Output Urine Total 1475 ml Physical Exam General-not in any distress HEENT-normocephalic, no icterus, no pallor, neck supple Respiratory-fair air entry bilateral, no rhonchi, no wheeze [id number] heard, Abdominal-soft, nontender, nondistended Musculoskeletal-no pedal edema, no calf tenderness Genitourinary-deferred Neuro-awake alert Psychiatric-not agitated, cooperative, Labs/Diagnostic Data Labs/Diagnostic Data Laboratory Tests Test 01/09/25 07:44 01/08/25 19:56 01/08/25 19:30 01/08/25 19:15 Range/Units White Blood Count 13.3 H 15.4 H 4.4-10.8 10^3/uL Red Blood Count 3.70 L 3.63 L 4.0-5.20 10^6/uL Hemoglobin 12.0 L 12.0 L 12.2-16.2 g/dL Hematocrit 35.9 L 35.1 L 36.0-46.0 % Mean Corpuscular Volume 97.0 96.7 80.0-100.0 fL Mean Corpuscular Hemoglobin 32.5 H 32.9 H 28.0-32.0 pg Mean Corpuscular Hemoglobin Concent 33.5 34.1 32.0-36.0 g/dL Red Cell Distribution Width 13.4 13.1 11.8-14.3 % Platelet Count 331 383 140-450 10^3/uL Mean Platelet Volume 7.3 7.3 6.9-10.8 fL Neutrophils (%) (Auto) 78.7 83.4 H 37.0-80.0 % Lymphocytes (%) (Auto) 9.1 L 7.2 L 10.0-50.0 % Monocytes (%) (Auto) 8.6 6.2 0.0-12.0 % Eosinophils (%) (Auto) 3.4 2.6 0.0-7.0 % Basophils (%) (Auto) 0.2 0.6 0.0-2.0 % Neutrophils # (Auto) 10.5 H 12.8 H 1.6-8.6 10 ^3/uL Lymphocytes # (Auto) 1.2 1.1 0.4-5.4 10 ^3/uL Monocytes # (Auto) 1.2 1.0 0-1.3 10 ^3/uL Eosinophils # (Auto) 0.5 0.4 0-0.8 10 ^3/uL Basophils # (Auto) 0 0.1 0-0.2 10 ^3/uL Nucleated Red Blood Cells 0.0 0.0 % Sodium Level 139 140 136-145 mmol/L Potassium Level 4.6 4.0 3.5-5.1 mmol/L Chloride Level 105 102 98-107 mmol/L Carbon Dioxide Level 26 29 20-31 mmol/L Anion Gap 8 9 5-15 Blood Urea Nitrogen 58 #H 80 *H 9-23 mg/dL Creatinine 1.71 H 2.31 H 0.550-1.02 mg/dL Glomerular Filtration Rate Calc 31 21 >90 mL/min BUN/Creatinine Ratio 33.9 H 34.6 H 10.0-20.0 Serum Glucose 98 97 74-106 mg/dL Calcium Level 9.3 9.2 8.7-10.4 mg/dL Total Bilirubin 0.4 0.5 0.2-1.0 mg/dL Aspartate Amino Transferase (AST) 26 17 13-40 U/L Alanine Aminotransferase (ALT) 18 10 7-40 U/L Alkaline Phosphatase 67 72 46-116 U/L Total Protein 6.4 6.8 5.7-8.2 g/dL Albumin 3.8 4.0 3.2-4.8 g/dL Urine Color Light-yellow Yellow Urine Clarity Clear Clear Urine pH 5.0 5.0-9.0 Urine Specific [place] 1.011 1.001-1.035 Urine Protein Negative Negative Urine Ketones Negative Negative Urine Blood Negative Negative /uL Urine Nitrite Negative Negative Urine Bilirubin Negative Negative Urine Urobilinogen Normal Negative mg/dL Urine Leukocyte Esterase Negative Negative /uL Urine RBC <1 0 - 4 /hpf Urine Microscopic WBC 1 0-5 /HPF Urine Squamous Epithelial Cells Few <5 /hpf Urine Bacteria None seen None Seen /hpf Urine Hyaline Casts Many 0 - 2 /lpf Urine Mucus Few None Seen Urine Glucose Normal Normal mg/dL Lactic Acid Level 2.0 0.4-2.0 mmol/L Test 01/08/25 00:00 Range/Units Influenza Type A Antigen Negative Negative Influenza Type B Antigen Negative Negative SARS-CoV-2 Antigen (Rapid) Negative NEGATIVE Assessment Acute kidney injury likely secondary to hypotension Possible sepsis Recommendations Continue gentle IV fluids Septic workup Urine analysis looks normal Plan discussed with: Patient, Son GURDEEP PINEDA MD Jan 09, 2025 20:47
[2025-01-09 21:00] VITALS: BP 92/55; PULSE 56; RESP 17; TEMP 97.5; O2SAT 93
[2025-01-10] VITALS (8 sets, daily range): BP systolic 95–125; BP diastolic 36–66; PULSE 52–82; RESP 16–19; TEMP 98.1–98.4; O2SAT 90–97
[2025-01-10 04:21] LABS: Basophils # (auto) 0.1 10 ^3/uL (0-0.2); Basophils % (auto) 0.5 % (0.0-2.0); Eosinophils # (auto) 0.4 10 ^3/uL (0-0.8); Eosinophils % (auto) 3.6 % (0.0-7.0); Hemoglobin 12.1 g/dL (12.2-16.2); Lymphocytes # (auto) 1.5 10 ^3/uL (0.4-5.4); Lymphocytes % (auto) 12.8 % (10.0-50.0); Mean Corpuscular Hemoglobin 32.3 pg (28.0-32.0); Mean Corpuscular Hgb Conc. 33.6 g/dL (32.0-36.0); Monocytes # (auto) 0.8 10 ^3/uL (0-1.3); Monocytes % (auto) 7.1 % (0.0-12.0); Neutrophils # (auto) 8.6 10 ^3/uL (1.6-8.6); Platelet Count (auto) 372 10^3/uL (140-450); Red Blood Cells 3.75 10^6/uL (4.0-5.20); Red Cell Distribution Width 12.8 % (11.8-14.3); White Blood Cell 11.4 10^3/uL (4.4-10.8)
[2025-01-10 04:26] LABS: Alanine Aminotransferase 16 U/L (7-40); Alkaline Phosphatase 69 U/L (46-116); Anion Gap 9 (5-15); BUN/Creatinine Ratio 42.2 (10.0-20.0); Calcium 9.7 mg/dL (8.7-10.4); Carbon Dioxide 25 mmol/L (20-31); Chloride 106 mmol/L (98-107); Glucose 94 mg/dL (74-106); Potassium 3.7 mmol/L (3.5-5.1); Sodium 140 mmol/L (136-145)
[2025-01-10 04:27] LABS: Aspartate Aminotransferase 20 U/L (13-40); Bilirubin, Total 0.4 mg/dL (0.2-1.0); Total Protein 6.7 g/dL (5.7-8.2)
[2025-01-10 04:33] LABS: Blood Urea Nitrogen 43 mg/dL (9-23)
--- NOTE | 2025-01-10 09:07 | DVHPN2 ---
Progress Note Date Seen: Jan 10, 2025 Medical Necessity Reason Pt with a Central, PICC or Fol: Yes Subjective Patient reports: Other (No new events) Review of Systems: Deferred Objective vital signs Vital Sign Date Time Temp Pulse Resp B/P (MAP) Pulse Ox O2 Delivery O2 Flow Rate FiO2 01/10/25 08:22 98.3 65 16 125/62 (83) 94 98.3 01/10/25 08:08 Room Air* 0 21 Total Intake and Output 01/09/25 01/09/25 01/10/25 15:00 23:00 07:00 Intake Total 300 ml 0 ml Output Total 500 ml 225 ml Balance -500 ml 75 ml 0 ml medications Current Medications Medications Dose Ordered Sig/Gonzalo Route Start Time Stop Time Status Last Admin Dose Admin Ceftriaxone Sodium 50 ml @ 100 mls/hr Q24H IV 01/09/25 21:00 01/09/25 20:00 100 MLS/HR Sodium Chloride 10 ml Q8HR IV 01/09/25 06:00 01/10/25 05:41 10 ML Acetaminophen/ Hydrocodone Bitart 1 tab Q4HP PRN PO 01/09/25 00:15 Ondansetron HCl 4 mg Q4HP PRN IV 01/09/25 00:15 Docusate Sodium 100 mg BIDPRN PRN PO 01/09/25 00:15 Acetaminophen 650 mg Q6HP PRN PO 01/09/25 00:15 Nitroglycerin 0.4 mg Q5MINP PRN SL 01/09/25 00:15 Morphine Sulfate 2 mg Q30M PRN IV 01/09/25 00:15 Apixaban 5 mg BID PO 01/09/25 10:00 01/09/25 22:34 5 MG Sodium Chloride 1,000 ml @ 60 mls/hr [id number] IV 01/09/25 20:45 01/09/25 20:45 60 MLS/HR laboratory and microbiology Laboratory Tests 01/10/25 03:25 Test 01/10/25 03:25 Range/Units Serum Glucose 94 74-106 mg/dL Microbiology Date/Time Source Procedure Growth Status 01/08/25 19:30 Blood Blood Culture - Preliminary NO GROWTH AFTER 24 HOURS OF INCUBATION. Resulted Problem List/Assessment/Plan Problem List/Assessment/Plan Acute kidney injury likely hemodynamic mediated secondary to hypotension Sepsis positive blood culture Obesity Recommendations Renal function has improved significantly Okay to stop IV fluids once blood pressures are more stable and better Renally dose antibiotics I will sign off this case please reconsult if needed Plan discussed with: Patient My Orders My Orders Orders - GURDEEP PINEDA MD Procedure Category Date Status Time Sodium Chloride 0.9% PHA 01/09/25 In Process 20:45 GURDEEP PINEDA MD Jan 10, 2025 09:07
[2025-01-10] MEDS: VANCOMYCIN 1GM/250ML KIT 250 ML IV ONE (12:00)
[2025-01-10] MEDS ORDERED: VANCOMYCIN PER PHARMACY 0 MG IV SCH (12:00)
--- NOTE | 2025-01-10 12:03 | DVHPN2 ---
Reviewed: Care Plan, H&P, Labs, Medications, Previous Orders, Radiology Changes from previous H/P or p: No Changes Eyes: No Pain, No Vision change, No Conjunctivae inflammation, No Eyelid inflammation, No Other, No Redness ENT: No Ear pain, No Ear discharge, No Nose pain, No Nose discharge, No Nose congestion, No Mouth pain, No Mouth swelling, No Throat pain, No Throat swelling, No Other Cardiovascular: No Chest Pain, No Palpitations, No Orthopnea, No Paroxysmal Noc. Dyspnea, No Edema, No Lt Headedness, No Other Respiratory: No Cough, No Dry, No Shortness of breath, No SOB with excertion, No Wheezing, No Hemoptysis, No Pleuritic Pain, No Sputum, No Other Gastrointestinal: No Nausea, No Vomiting, No Abdominal Pain, No Diarrhea, No Constipation, No Melena, No Hematochezia, No Other Genitourinary: No Dysuria, No Frequency, No Incontinence, No Hematuria, No Retention, No Other Musculoskeletal: No other, No neck pain, No shoulder pain, No arm pain, No back pain, No hand pain, No leg pain, No foot pain Skin: No Rash, No Lesions, No Jaundice, No Bruising, No Other Objective Vitals Vital Signs Date Time Temp Pulse Resp B/P (MAP) Pulse Ox O2 Delivery O2 Flow Rate FiO2 01/10/25 08:22 98.3 65 16 125/62 (83) 94 98.3 01/10/25 08:08 Room Air* 0 21 Intake/Output Intake and Output 01/10/25 07:00 Intake Total 300 ml Output Total 725 ml Balance -425 ml Intake Oral 300 ml Output Urine Total 725 ml Medications Current Medications Medications Dose Ordered Sig/Gonzalo Route Start Time Stop Time Status Last Admin Dose Admin Ceftriaxone Sodium 50 ml @ 100 mls/hr Q24H IV 01/09/25 21:00 01/09/25 20:00 100 MLS/HR Sodium Chloride 10 ml Q8HR IV 01/09/25 06:00 01/10/25 05:41 10 ML Acetaminophen/ Hydrocodone Bitart 1 tab Q4HP PRN PO 01/09/25 00:15 Ondansetron HCl 4 mg Q4HP PRN IV 01/09/25 00:15 Docusate Sodium 100 mg BIDPRN PRN PO 01/09/25 00:15 Acetaminophen 650 mg Q6HP PRN PO 01/09/25 00:15 Nitroglycerin 0.4 mg Q5MINP PRN SL 01/09/25 00:15 Morphine Sulfate 2 mg Q30M PRN IV 01/09/25 00:15 Apixaban 5 mg BID PO 01/09/25 10:00 01/10/25 09:04 5 MG Sodium Chloride 1,000 ml @ 60 mls/hr [id number] IV 01/09/25 20:45 01/09/25 20:45 60 MLS/HR Laboratory Results Laboratory Tests 01/10/25 03:25 Chemistry Test 01/10/25 03:25 Albumin 4.0 g/dL (3.2-4.8) Calcium Level 9.7 mg/dL (8.7-10.4) Total Protein 6.7 g/dL (5.7-8.2) LFT Test 01/10/25 03:25 Alanine Aminotransferase (ALT) 16 U/L (7-40) Alkaline Phosphatase 69 U/L (46-116) Aspartate Amino Transferase (AST) 20 U/L (13-40) Total Bilirubin 0.4 mg/dL (0.2-1.0) Urinalysis Test 01/08/25 19:56 Urine Color Light-yellow (Yellow) Urine Clarity Clear (Clear) Urine pH 5.0 (5.0-9.0) Urine Specific [place] 1.011 (1.001-1.035) Urine Protein Negative (Negative) Urine Ketones Negative (Negative) Urine Blood Negative /uL (Negative) Urine Nitrite Negative (Negative) Urine Bilirubin Negative (Negative) Urine Urobilinogen Normal mg/dL (Negative) Urine Leukocyte Esterase Negative /uL (Negative) Urine RBC <1 /hpf (0 - 4) Urine Microscopic WBC 1 /HPF (0-5) Urine Squamous Epithelial Cells Few /hpf (<5) Urine Bacteria None seen /hpf (None Seen) Urine Hyaline Casts Many /lpf (0 - 2) Urine Mucus Few (None Seen) Urine Glucose Normal mg/dL (Normal) Microbiology Microbiology Date/Time Source Procedure Growth Status 01/08/25 19:56 Urine - Catheterized Urine Culture - Preliminary Resulted 01/08/25 19:30 Blood Blood Culture - Preliminary NO GROWTH AFTER 24 HOURS OF INCUBATION. Resulted Labs and/or images reviewed: Labs reviewed by me, Image(s) reviewed by me Assessment/Plan Assessment/Plan Sepsis unknown etiology: Blood cultures Gram-positive cocci in clusters continue Rocephin Bacteremia with Gram-positive cocci in clusters: Start vancomycin Acute Generalized weakness Acute kidney injury versus CKD, significantly improved nephrology consult appreciated Acute Hypotension , resolving Acute metabolic encephalopathy Acute dehydration Leukocytosis Hypotension Hypercholesterolemia History of CVA with right-sided hemiplegia Sydnee test negative Flu test negative Son Bao [phone] who lives in [place] was at bedside in the emergency room on 01-09-25 Time Spent 50 minutes Advanced care planning time 20 minutes Patient is full code Plan discussed with: Patient My Orders Orders - TAD KELSEY MD Procedure Category Date Status Time Blood Culture ADRIAN 01/09/25 In Process 14:07 *[facility] CONS 01/09/25 Transmitted -[place] 14:08 Vancomycin PHA 01/10/25 Verified 12:00 Vancomycin PHA 01/10/25 Verified 12:00 Date of Service: Jan 10, 2025 Billing Provider: TAD KELSEY MD Common Visit Codes: [id number] INP/OBS CARE(HIGH) TAD KELSEY MD Jan 10, 2025 12:03
--- NOTE | 2025-01-10 13:18 | DVHINCON2 ---
Date Seen: Jan 10, 2025 Referring Physician Concepción Reason for Consultation Trigeminy History of Present Illness 74-year-old female with PMH for CVA with right-sided deficit, HLD, HTN, multiple UTIs presents to the hospital with increased altered mental status. Patient poor historian therefore information gathered mainly from chart review. Apparently Patient's son reports she was acting altered, confusion state, getting worse that prompted this visit. Patient was seen and evaluated in the ED, laboratory data shows WBC 15.4 hemoglobin 12.0, hematocrit 35.1, platelets 383, sodium 140, potassium 4.0, BUN 80, creatinine 2.31, GFR 21, glucose 97, blood pressure 91/53, heart rate 83, temperature 97.8 F, O2 saturation 96% on oxygen. Patient denied chest pain, no headache, no diaphoresis, no nausea, no vomiting, no fever, no chills. Patient was admitted for further evaluation and medical management. While on telemetry patient noted to have increased PVCs with patient going in and out of trigeminy. Cardiology consulted. Past Medical History As above Past Surgical History As above Family History: Alcoholism FH: cancer G8 BROTHER FH: throat cancer G8 SISTER Social History Denies alcohol, tobacco, or illicit drug use Allergies: Coded Allergies: NO KNOWN ALLERGIES (Unverified , 03/24/19) Home Meds Reported Medications Apixaban Base (ELIQUIS) 5 Mg Tab, 1 01/09/25 Gabapentin (Gabapentin) 300 Mg Cap 01/09/25 Torsemide Injection (Torsemide) 20 Mg Tab, 1 01/09/25 Simvastatin (Simvastatin) 20 Mg Tab, 20 MG PO DAILY for 30 Days 03/24/19 Lisinopril (Lisinopril) 20 Mg Tab, 20 MG PO DAILY for 30 Days, MG 03/24/19 Current Medications Current Medications Medications (Trade) Dose Ordered Sig/Gonzalo Route PRN Reason Start Time Stop Time Status Last Admin Ceftriaxone Sodium 50 ml @ 100 mls/hr Q24H IV 01/09/25 21:00 01/09/25 20:00 Sodium Chloride 1,000 ml @ 60 mls/hr [id number] IV 01/09/25 20:45 01/09/25 20:45 Vancomycin HCl 0 ml @ 0 mls/hr UD IV 01/10/25 12:00 Review of Systems Defer Vital Signs Vital Signs Date Time Temp Pulse Resp B/P (MAP) Pulse Ox O2 Delivery O2 Flow Rate FiO2 01/10/25 08:22 98.3 65 16 125/62 (83) 94 98.3 01/10/25 08:08 Room Air* 0 21 Physical Exam General appearance: Patient is well-developed, well-nourished, in no acute distress. HEENT: Exam shows: Normocephalic, atraumatic, PERRLA, EOMI Neck: Supple, no bruits Chest: Equal chest excursion bilaterally. Breath sounds diminished. Heart: Rhythm: Regular rate; PVC no murmur or gallop Abdomen: Exam shows: Soft, nontender, nondistended Musculoskeletal: No clubbing, no cyanosis, no lower extremity edema Dermatology: Skin warm, moist. Neurological: Exam shows: Alert and oriented x2-3, normal speech Available prior records, labs, EKG, rhythm strips reviewed and interpreted Labs/Diagnostic Data Labs Test 01/10/25 03:25 01/08/25 19:56 01/08/25 19:30 01/08/25 00:00 Range/Units White Blood Count 11.4 H 4.4-10.8 10^3/uL Red Blood Count 3.75 L 4.0-5.20 10^6/uL Hemoglobin 12.1 L 12.2-16.2 g/dL Hematocrit 36.0 36.0-46.0 % Mean Corpuscular Volume 96.0 80.0-100.0 fL Mean Corpuscular Hemoglobin 32.3 H 28.0-32.0 pg Mean Corpuscular Hemoglobin Concent 33.6 32.0-36.0 g/dL Red Cell Distribution Width 12.8 11.8-14.3 % Platelet Count 372 140-450 10^3/uL Mean Platelet Volume 7.6 6.9-10.8 fL Neutrophils (%) (Auto) 76.0 37.0-80.0 % Lymphocytes (%) (Auto) 12.8 10.0-50.0 % Monocytes (%) (Auto) 7.1 0.0-12.0 % Eosinophils (%) (Auto) 3.6 0.0-7.0 % Basophils (%) (Auto) 0.5 0.0-2.0 % Neutrophils # (Auto) 8.6 1.6-8.6 10 ^3/uL Lymphocytes # (Auto) 1.5 0.4-5.4 10 ^3/uL Monocytes # (Auto) 0.8 0-1.3 10 ^3/uL Eosinophils # (Auto) 0.4 0-0.8 10 ^3/uL Basophils # (Auto) 0.1 0-0.2 10 ^3/uL Nucleated Red Blood Cells 0.0 % Sodium Level 140 136-145 mmol/L Potassium Level 3.7 3.5-5.1 mmol/L Chloride Level 106 98-107 mmol/L Carbon Dioxide Level 25 20-31 mmol/L Anion Gap 9 5-15 Blood Urea Nitrogen 43 #H 9-23 mg/dL Creatinine 1.02 # 0.550-1.02 mg/dL Glomerular Filtration Rate Calc 57 >90 mL/min BUN/Creatinine Ratio 42.2 H 10.0-20.0 Serum Glucose 94 74-106 mg/dL Calcium Level 9.7 8.7-10.4 mg/dL Total Bilirubin 0.4 0.2-1.0 mg/dL Aspartate Amino Transferase (AST) 20 13-40 U/L Alanine Aminotransferase (ALT) 16 7-40 U/L Alkaline Phosphatase 69 46-116 U/L Total Protein 6.7 5.7-8.2 g/dL Albumin 4.0 3.2-4.8 g/dL Urine Color Light-yellow Yellow Urine Clarity Clear Clear Urine pH 5.0 5.0-9.0 Urine Specific [place] 1.011 1.001-1.035 Urine Protein Negative Negative Urine Ketones Negative Negative Urine Blood Negative Negative /uL Urine Nitrite Negative Negative Urine Bilirubin Negative Negative Urine Urobilinogen Normal Negative mg/dL Urine Leukocyte Esterase Negative Negative /uL Urine RBC <1 0 - 4 /hpf Urine Microscopic WBC 1 0-5 /HPF Urine Squamous Epithelial Cells Few <5 /hpf Urine Bacteria None seen None Seen /hpf Urine Hyaline Casts Many 0 - 2 /lpf Urine Mucus Few None Seen Urine Glucose Normal Normal mg/dL Lactic Acid Level 2.0 0.4-2.0 mmol/L Influenza Type A Antigen Negative Negative Influenza Type B Antigen Negative Negative SARS-CoV-2 Antigen (Rapid) Negative NEGATIVE Microbiology Date/Time Source Procedure Growth Status 01/08/25 19:56 Urine - Catheterized Urine Culture - Preliminary Resulted 2/7/25 19:30 Blood Blood Culture - Preliminary NO GROWTH AFTER 24 HOURS OF INCUBATION. Resulted Assessment * Trigeminy -continue telemetry monitoring. Patient's blood pressure marginal to start AV leroy luis angel. Follow up echo. May initiate on low-dose metoprolol if BP improves. * Hypotension - marginal. Continue trending * MAXWELL on CKD - likely in setting of hypotension. Continue monitoring. Improving. Nephrology on board. * Altered mental status - likely in setting of sepsis bacteremia. * Sepsis bacteremia - continued on IV antibiotics. Management per primary team. Case Discussed with Dr Swain. Continue telemetry monitoring. Follow up echo. May initiate on low-dose metoprolol if BP stable. Monitoring replace electrolytes. Critical care, time spent: 40 minutes This medical document was created using an electronic medical record system with voice recognition software and computerized dictation system. Although this document has been carefully reviewed, there might still be some phonetic and typographical errors. Occasional wrong-word or ``sound-alike substitutions may have occurred due to the inherent limitations of voice recognition software. These areas are purely typographical due to imperfections of the software programs and do not reflect any compromise in the patient's medical care. Julio chaparro read the chart carefully and recognize, using context, where these substitutions have occurred. Thank you for allowing me to participate in the management of this patient. The treatment plan was discussed with and agreed upon by patient/family yessica paredes requesting consultants and ordering of imaging/procedures. Plan discussed with: Patient NYHA Physical activity limitations: NA Date of Service: Jan 10, 2025 Billing Provider: EUFEMIA AYALA Cardiology Common Codes: [id number] INP/OBS CARE (High), [id number] CARE 30-74 MIN EUFEMIA AYALA Jan 10, 2025 13:12
--- NOTE | 2025-01-10 22:23 | DVHINCON2 ---
Date Seen: Jan 10, 2025 Referring Physician Concepción Reason for Consultation Trigeminy History of Present Illness This is a 74-year-old female with PMH of CVA with right-sided deficit, HLD, HTN, multiple UTIs presents to the ED with increased altered mental status. Patient poor historian therefore information gathered mainly from chart review. Apparently Patient's son at bedside reports she was acting altered, confusion s wilson, getting worse that prompted this visit. Patient was seen and evaluated in the ED, laboratory data shows WBC 15.4 hemoglobin 12.0, hematocrit 35.1, platelets 383, sodium 140, potassium 4.0, BUN 80, creatinine 2.31, GFR 21, glucose 97, blood pressure 91/53, heart rate 83, temperature 97.8 F, O2 saturation 96% on oxygen. Chest x-ray showed NAD. Patient denied chest pain, no headache, no diaphoresis, no nausea, no vomiting, no fever, no chills. Patient was admitted for further evaluation and medical management. While on telemetry patient noted to have increased PVCs with patient going in and out of trigeminy. Cardiology consulted. Past Medical History As above Past Surgical History As above Family History: Alcoholism FH: cancer G8 BROTHER FH: throat cancer G8 SISTER Allergies: Coded Allergies: NO KNOWN ALLERGIES (Unverified , 03/24/19) Home Meds Reported Medications Apixaban Base (ELIQUIS) 5 Mg Tab, 1 01/09/25 Gabapentin (Gabapentin) 300 Mg Cap 01/09/25 Torsemide Injection (Torsemide) 20 Mg Tab, 1 01/09/25 Simvastatin (Simvastatin) 20 Mg Tab, 20 MG PO DAILY for 30 Days 03/24/19 Lisinopril (Lisinopril) 20 Mg Tab, 20 MG PO DAILY for 30 Days, MG 03/24/19 Current Medications Current Medications Medications (Trade) Dose Ordered Sig/Gonzalo Route PRN Reason Start Time Stop Time Status Last Admin Ceftriaxone Sodium 50 ml @ 100 mls/hr Q24H IV 01/09/25 21:00 01/09/25 20:00 Sodium Chloride 1,000 ml @ 60 mls/hr [id number] IV 01/09/25 20:45 01/09/25 20:45 Vancomycin HCl 0 ml @ 0 mls/hr UD IV 01/10/25 12:00 Vancomycin HCl 250 ml @ 200 mls/hr Q18H IV 01/11/25 06:00 Review of Systems Review of Systems Defer Vital Signs Vital Signs Date Time Temp Pulse Resp B/P (MAP) Pulse Ox O2 Delivery O2 Flow Rate FiO2 01/10/25 16:26 98.4 52 16 117/57 (77) 97 98.4 01/10/25 08:08 Room Air* 0 21 Physical Exam GENERAL: Awake, alert, oriented. LUNGS: Clear. CARDIOVASCULAR: Heart sounds are good. ABDOMEN: Soft. Labs/Diagnostic Data Labs Test 01/10/25 03:25 01/08/25 19:56 01/08/25 19:30 01/08/25 00:00 Range/Units White Blood Count 11.4 H 4.4-10.8 10^3/uL Red Blood Count 3.75 L 4.0-5.20 10^6/uL Hemoglobin 12.1 L 12.2-16.2 g/dL Hematocrit 36.0 36.0-46.0 % Mean Corpuscular Volume 96.0 80.0-100.0 fL Mean Corpuscular Hemoglobin 32.3 H 28.0-32.0 pg Mean Corpuscular Hemoglobin Concent 33.6 32.0-36.0 g/dL Red Cell Distribution Width 12.8 11.8-14.3 % Platelet Count 372 140-450 10^3/uL Mean Platelet Volume 7.6 6.9-10.8 fL Neutrophils (%) (Auto) 76.0 37.0-80.0 % Lymphocytes (%) (Auto) 12.8 10.0-50.0 % Monocytes (%) (Auto) 7.1 0.0-12.0 % Eosinophils (%) (Auto) 3.6 0.0-7.0 % Basophils (%) (Auto) 0.5 0.0-2.0 % Neutrophils # (Auto) 8.6 1.6-8.6 10 ^3/uL Lymphocytes # (Auto) 1.5 0.4-5.4 10 ^3/uL Monocytes # (Auto) 0.8 0-1.3 10 ^3/uL Eosinophils # (Auto) 0.4 0-0.8 10 ^3/uL Basophils # (Auto) 0.1 0-0.2 10 ^3/uL Nucleated Red Blood Cells 0.0 % Sodium Level 140 136-145 mmol/L Potassium Level 3.7 3.5-5.1 mmol/L Chloride Level 106 98-107 mmol/L Carbon Dioxide Level 25 20-31 mmol/L Anion Gap 9 5-15 Blood Urea Nitrogen 43 #H 9-23 mg/dL Creatinine 1.02 # 0.550-1.02 mg/dL Glomerular Filtration Rate Calc 57 >90 mL/min BUN/Creatinine Ratio 42.2 H 10.0-20.0 Serum Glucose 94 74-106 mg/dL Calcium Level 9.7 8.7-10.4 mg/dL Total Bilirubin 0.4 0.2-1.0 mg/dL Aspartate Amino Transferase (AST) 20 13-40 U/L Alanine Aminotransferase (ALT) 16 7-40 U/L Alkaline Phosphatase 69 46-116 U/L Total Protein 6.7 5.7-8.2 g/dL Albumin 4.0 3.2-4.8 g/dL Urine Color Light-yellow Yellow Urine Clarity Clear Clear Urine pH 5.0 5.0-9.0 Urine Specific [place] 1.011 1.001-1.035 Urine Protein Negative Negative Urine Ketones Negative Negative Urine Blood Negative Negative /uL Urine Nitrite Negative Negative Urine Bilirubin Negative Negative Urine Urobilinogen Normal Negative mg/dL Urine Leukocyte Esterase Negative Negative /uL Urine RBC <1 0 - 4 /hpf Urine Microscopic WBC 1 0-5 /HPF Urine Squamous Epithelial Cells Few <5 /hpf Urine Bacteria None seen None Seen /hpf Urine Hyaline Casts Many 0 - 2 /lpf Urine Mucus Few None Seen Urine Glucose Normal Normal mg/dL Lactic Acid Level 2.0 0.4-2.0 mmol/L Influenza Type A Antigen Negative Negative Influenza Type B Antigen Negative Negative SARS-CoV-2 Antigen (Rapid) Negative NEGATIVE Microbiology Date/Time Source Procedure Growth Status 01/09/25 18:00 Nose MRSA Screen - Final Complete 01/09/25 14:18 Blood Blood Culture - Preliminary NO GROWTH AFTER 24 HOURS OF INCUBATION. Resulted 01/08/25 19:56 Urine - Catheterized Urine Culture - Preliminary Resulted Assessment Trigeminy. Hypotension. MAXWELL on CKD. AMS. Sepsis bacteremia. Plan/Recommendation I agree with your ongoing assessment and care of plan. Patient has been seen by Samir Ponce NP on my behalf, him and I discussed the plan with the patient. Continue telemetry monitoring. Patient's blood pressure marginal to start AV leroy luis angel. Follow up echo. May initiate on low-dose metoprolol if BP improves. Continue trending BP. Nephrology on board. Continued on IV antibiotics. Management per primary team. Additional plan as per the hospital course. Plan discussed with: Patient NYHA Physical activity limitations: NA Date of Service: Jan 10, 2025 Billing Provider: LETICIA MAGANA MD Cardiology Common Codes: [id number] INP/OBS CARE (High), [id number] CARE 30-74 MIN LETICIA MAGANA MD Jan 10, 2025 17:44
--- NOTE | 2025-01-10 23:17 | DVHSR ---
APPROVED REPORT EXAM: Two-dimensional and M-mode echocardiogram with Doppler and color Doppler. Blood Pressure: 125/62 mmHg INDICATION Hypotension Trigeminy RISK FACTORS Obesity: Height: 5'4", Weight: 231 DIMENSIONS LVDd3.8 (3.8-5.7cm)LA (2D) (1.9-4.0cm)Aortic Root3.1 (2.0-3.7cm) LVDs2.6 (2.5-4.0cm)LA (MM) (1.9-4.0cm)Aortic Cusp Exc1.2 (1.5-2.0cm) EF (%) 63.0 (55-70%)Rt. Atrium (1.9-4.0cm)Asc. Aorta cm IVSd1.2 (0.7-1.1cm)RV (D) (1.8-2.4cm) PWd1.3 (0.7-1.1cm) Mitral Valve MitralMitral Stenosis E wave0.82m/sMV Mean GR.mmHg A wave1.00m/sMV Peak GR.mmHg E/A ratio0.82D MVAcm2 DECEL [id number] 1/2 Timems Aortic Valve Aortic ValveAortic Stenosis V11.00m/Toi Mean GR.7mmHg V21.87m/Toi Peak GR.14mmHg LVOT Diameter1.9 (1.8-2.4cm)Doppler AVA1.52cm2 Pulmonic Valve V20.99m/s Other Information Technically limited study due to body habitus and patient position. Conclusion MILD LVH AND MILD LV DIASTOLIC DYSFUNCTION LV EJECTION FRACTION IS 65% MODERATELY DILATED RV NORMAL VALVES NO EFFUSION AORTIC SCLEROSIS
[2025-01-11] VITALS (8 sets, daily range): BP systolic 102–117; BP diastolic 60–71; PULSE 56–82; RESP 16–20; TEMP 95.1–98.4; O2SAT 96–98
[2025-01-11] MEDS: VANCOMYCIN 1.25GM/250ML 250 ML IV SCH (05:25)
[2025-01-11 07:53] LABS: Basophils # (auto) 0 10 ^3/uL (0-0.2); Basophils % (auto) 0.2 % (0.0-2.0); Eosinophils # (auto) 0.1 10 ^3/uL (0-0.8); Hematocrit 35.7 % (36.0-46.0); Hemoglobin 11.7 g/dL (12.2-16.2); Lymphocytes # (auto) 1.5 10 ^3/uL (0.4-5.4); Lymphocytes % (auto) 12.7 % (10.0-50.0); Mean Corpuscular Hemoglobin 31.9 pg (28.0-32.0); Mean Corpuscular Hgb Conc. 32.7 g/dL (32.0-36.0); Mean Corpuscular Volume 97.6 fL (80.0-100.0); Monocytes % (auto) 8.5 % (0.0-12.0); Neutrophils # (auto) 8.9 10 ^3/uL (1.6-8.6); Neutrophils % (auto) 77.6 % (37.0-80.0); Platelet Count (auto) 332 10^3/uL (140-450); Red Blood Cells 3.66 10^6/uL (4.0-5.20); Red Cell Distribution Width 12.9 % (11.8-14.3); White Blood Cell 11.5 10^3/uL (4.4-10.8)
[2025-01-11 08:04] LABS: Alanine Aminotransferase 15 U/L (7-40); Albumin 3.8 g/dL (3.2-4.8); Alkaline Phosphatase 63 U/L (46-116); Anion Gap 9 (5-15); Aspartate Aminotransferase 18 U/L (13-40); BUN/Creatinine Ratio 24.7 (10.0-20.0); Bilirubin, Total 0.5 mg/dL (0.2-1.0); Blood Urea Nitrogen 20 mg/dL (9-23); Calcium 9.6 mg/dL (8.7-10.4); Carbon Dioxide 23 mmol/L (20-31); Glucose 103 mg/dL (74-106); Potassium 3.7 mmol/L (3.5-5.1); Sodium 140 mmol/L (136-145)
[2025-01-11 08:05] LABS: Total Protein 6.3 g/dL (5.7-8.2)
[2025-01-11 08:06] LABS: Chloride 108 mmol/L (98-107)
--- NOTE | 2025-01-11 13:35 | DVHPN2 ---
Reviewed: Care Plan, H&P, Labs, Medications, Previous Orders, Radiology Changes from previous H/P or p: No Changes Eyes: No Pain, No Vision change, No Conjunctivae inflammation, No Eyelid inflammation, No Other, No Redness ENT: No Ear pain, No Ear discharge, No Nose pain, No Nose discharge, No Nose congestion, No Mouth pain, No Mouth swelling, No Throat pain, No Throat swelling, No Other Cardiovascular: No Chest Pain, No Palpitations, No Orthopnea, No Paroxysmal Noc. Dyspnea, No Edema, No Lt Headedness, No Other Respiratory: No Cough, No Dry, No Shortness of breath, No SOB with excertion, No Wheezing, No Hemoptysis, No Pleuritic Pain, No Sputum, No Other Gastrointestinal: No Nausea, No Vomiting, No Abdominal Pain, No Diarrhea, No Constipation, No Melena, No Hematochezia, No Other Genitourinary: No Dysuria, No Frequency, No Incontinence, No Hematuria, No Retention, No Other Musculoskeletal: No other, No neck pain, No shoulder pain, No arm pain, No back pain, No hand pain, No leg pain, No foot pain Skin: No Rash, No Lesions, No Jaundice, No Bruising, No Other Objective Vitals Vital Signs Date Time Temp Pulse Resp B/P (MAP) Pulse Ox O2 Delivery O2 Flow Rate FiO2 01/11/25 08:55 95.1 76 20 104/69 (81) 98 95.1 01/11/25 08:00 Room Air* 0 21 Intake/Output Intake and Output 01/11/25 07:00 Intake Total 1000 ml Output Total 2000 ml Balance -1000 ml Intake Oral 1000 ml Output Urine Total 2000 ml Medications Current Medications Medications Dose Ordered Sig/Gonzalo Route Start Time Stop Time Status Last Admin Dose Admin Ceftriaxone Sodium 50 ml @ 100 mls/hr Q24H IV 01/09/25 21:00 01/10/25 21:06 100 MLS/HR Sodium Chloride 10 ml Q8HR IV 01/09/25 06:00 01/11/25 05:32 10 ML Acetaminophen/ Hydrocodone Bitart 1 tab Q4HP PRN PO 01/09/25 00:15 Ondansetron HCl 4 mg Q4HP PRN IV 01/09/25 00:15 Docusate Sodium 100 mg BIDPRN PRN PO 01/09/25 00:15 Acetaminophen 650 mg Q6HP PRN PO 01/09/25 00:15 Nitroglycerin 0.4 mg Q5MINP PRN SL 01/09/25 00:15 Morphine Sulfate 2 mg Q30M PRN IV 01/09/25 00:15 Apixaban 5 mg BID PO 01/09/25 10:00 01/11/25 10:32 5 MG Sodium Chloride 1,000 ml @ 60 mls/hr [id number] IV 01/09/25 20:45 01/11/25 05:32 60 MLS/HR Vancomycin HCl 0 ml @ 0 mls/hr UD IV 01/10/25 12:00 Vancomycin HCl 250 ml @ 200 mls/hr Q18H IV 01/11/25 06:00 01/11/25 05:25 200 MLS/HR Laboratory Results Laboratory Tests 01/11/25 06:54 Chemistry Test 01/11/25 06:54 Albumin 3.8 g/dL (3.2-4.8) Calcium Level 9.6 mg/dL (8.7-10.4) Total Protein 6.3 g/dL (5.7-8.2) LFT Test 01/11/25 06:54 Alanine Aminotransferase (ALT) 15 U/L (7-40) Alkaline Phosphatase 63 U/L (46-116) Aspartate Amino Transferase (AST) 18 U/L (13-40) Total Bilirubin 0.5 mg/dL (0.2-1.0) Urinalysis Test 01/08/25 19:56 Urine Color Light-yellow (Yellow) Urine Clarity Clear (Clear) Urine pH 5.0 (5.0-9.0) Urine Specific [place] 1.011 (1.001-1.035) Urine Protein Negative (Negative) Urine Ketones Negative (Negative) Urine Blood Negative /uL (Negative) Urine Nitrite Negative (Negative) Urine Bilirubin Negative (Negative) Urine Urobilinogen Normal mg/dL (Negative) Urine Leukocyte Esterase Negative /uL (Negative) Urine RBC <1 /hpf (0 - 4) Urine Microscopic WBC 1 /HPF (0-5) Urine Squamous Epithelial Cells Few /hpf (<5) Urine Bacteria None seen /hpf (None Seen) Urine Hyaline Casts Many /lpf (0 - 2) Urine Mucus Few (None Seen) Urine Glucose Normal mg/dL (Normal) Microbiology Microbiology Date/Time Source Procedure Growth Status 01/09/25 18:00 Nose MRSA Screen - Final Complete 01/09/25 14:18 Blood Blood Culture - Preliminary NO GROWTH AFTER 24 HOURS OF INCUBATION. Resulted 01/08/25 19:56 Urine - Catheterized Urine Culture - Final Complete Labs and/or images reviewed: Labs reviewed by me, Image(s) reviewed by me Assessment/Plan Assessment/Plan Sepsis unknown etiology: Blood cultures Gram-positive cocci in clusters continue Rocephin Bacteremia with Gram-positive cocci in clusters: Start vancomycin Acute Generalized weakness Acute kidney injury versus CKD, significantly improved nephrology consult appreciated Acute Hypotension , resolving Acute metabolic encephalopathy Acute dehydration Leukocytosis Hypotension Hypercholesterolemia History of CVA with right-sided hemiplegia Sydnee test negative Flu test negative Son Bao [phone] who lives in [place] was at bedside in the emergency room on 01-09-25 Time Spent 50 minutes Advanced care planning time 20 minutes Patient is full code Plan discussed with: Patient My Orders Orders - TAD KELSEY MD Procedure Category Date Status Time Vancomycin PHA 01/11/25 In Process 1.25gm/250ml 06:00 Vancomycin Per KATYA 01/12/25 In Process Pharmacy Protoc 18:00 Vancomycin,Trough LAB 01/12/25 Verified 17:00 Date of Service: Jan 11, 2025 Billing Provider: TAD KELSEY MD Common Visit Codes: [id number] INP/OBS CARE(HIGH) TAD KELSEY MD Jan 11, 2025 13:35
--- NOTE | 2025-01-11 14:25 | ECG ---
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
--- NOTE | 2025-01-11 20:56 | DVHINCON2 ---
Date of service: Jan 11, [address] Avery Reason for Consultation Severe dementia History of Present Illness Ms. Uzma Brooks is a 74 years old right-handed female with a history of hypertension, diabetes, stroke, at that time, she was awake, but is only oriented to herself, she can not answer my questions or give a history, the history is obtained from her [id number], Denisha The patient was recently discharged from the [facility] to a fpc for right 5th toe fracture, and the family noted the patient was more confused, blood pressure was low, 60/?, pulse ox was slow, and the patient was transferred to [facility]. For about 5-4 years, after she lost her , the family have noticed possibly progressive short-term memory difficulty, in that the patient was repeating herself, but long-term memory is fine. She remembers all her family members. She needs family to help her medications, Her daughter is not aware of the stroke symptoms, but the patient was said to have stroke after testing She was blood clot in the leg four years ago, the patient was on Eliquis at home [phone], no answer pineapples Urinalysis, 01/08/2025: WBC: 1, urine leukocyte esterase: Negative WBC 01/21/25: 11.5/11.7/332/97.6 BUN/CR, 01/08/2025: 80/2.31, 01/09/2025:58/1.71, 01/11/2025: 20/0.81 Liver function tests, 01/11/2025: Unremarkable Chest x-ray, 01/08/2025: No acute cardiopulmonary abnormality CT head, 01/12/16: 1. No evidence for acute intracranial pathology. 2. Mild generalized volume loss. 3. Small chronic lacunar infarcts versus perivascular spaces in the left frontal periventricular region. 4. Paranasal sinus disease, detailed above Past Medical History Hypertension, dyslipidemia, stroke, Past Surgical History No history of major surgeries Family History: Alcoholism FH: cancer G8 BROTHER FH: throat cancer G8 SISTER Family History No dementia, cancer, alcoholism. Her [id number] is not aware of other major medical problems Social History She has not history of tobacco smoking, no history of alcohol or drug abuse Allergies: Coded Allergies: NO KNOWN ALLERGIES (Unverified , 03/24/19) Home Meds Reported Medications Apixaban Base (ELIQUIS) 5 Mg Tab, 1 01/09/25 Gabapentin (Gabapentin) 300 Mg Cap 01/09/25 Torsemide Injection (Torsemide) 20 Mg Tab, 1 01/09/25 Simvastatin (Simvastatin) 20 Mg Tab, 20 MG PO DAILY for 30 Days 03/24/19 Lisinopril (Lisinopril) 20 Mg Tab, 20 MG PO DAILY for 30 Days, MG 03/24/19 Current Medications Current Medications Medications (Trade) Dose Ordered Sig/Gonzalo Route PRN Reason Start Time Stop Time Status Last Admin Vancomycin HCl 250 ml @ 200 mls/hr Q18H IV 01/11/25 06:00 01/11/25 05:25 Zolpidem Tartrate (Ambien) 10 mg HSPRN PRN PO FOR INSOMNIA 01/11/25 18:15 Review of Systems As above, the other systems are negative Vital Signs Vital Signs Date Time Temp Pulse Resp B/P (MAP) Pulse Ox O2 Delivery O2 Flow Rate FiO2 01/11/25 17:00 98.4 65 18 109/70 (83) 98 98.4 01/11/25 08:00 Room Air* 0 21 Physical Exam GENERAL EXAM: General: the patient is well developed and nourished. No acute distress. HEENT: Normocephalic, neck is supple, no carotid bruits. No mass. RESPIRATORY: Normal respiratory effort with symmetrical lung expansion. Lungs clear to auscultation. CARDIOVASCULAR: Regular rate and rhythm with no murmurs. S1, S2. ABDOMEN: Soft, nontender, normal bowel sound NEUROLOGICAL: MENTAL STATUS: Awake. Oriented to herself SPEECH, LANGUAGE, HIGHER CORTICAL FUNCTION: no aphasia or dysathria. CRANIAL NERVES: #2: Intact visual hughes to confrontation. #3,4,6: Pupils are equal, round and reactive. EOMs full and conjugate. #5: Facial sensation intact in all three divisions bilaterally. Mandibular strength intact. #7: Facial muscles symmetrical and strength intact. #8: Hearing grossly normal to voice. #9,10: Uvula and soft palate rise in the midline. Swallow and voice are normal. #11: Trapezius and sternomastoid strength intact bilaterally. #12: Tongue midline. No fasciculations or atrophy. SENSATION: Sensation to touch and pinprick is ok MOTOR: Normal tone in the upper and lower extremity. Normal muscle bulk. No fasciculations. No abnormal movements or posturing. She moves the arms and legs. REFLEXES: Deep tendon reflexes are symmetrical. No pathological reflexes. CEREBELLAR/COORDINATION: Deferred GAIT/STATION: deferred. Labs/Diagnostic Data Labs Test 01/11/25 06:54 01/08/25 19:56 01/08/25 19:30 01/08/25 00:00 Range/Units White Blood Count 11.5 H 4.4-10.8 10^3/uL Red Blood Count 3.66 L 4.0-5.20 10^6/uL Hemoglobin 11.7 L 12.2-16.2 g/dL Hematocrit 35.7 L 36.0-46.0 % Mean Corpuscular Volume 97.6 80.0-100.0 fL Mean Corpuscular Hemoglobin 31.9 28.0-32.0 pg Mean Corpuscular Hemoglobin Concent 32.7 32.0-36.0 g/dL Red Cell Distribution Width 12.9 11.8-14.3 % Platelet Count 332 140-450 10^3/uL Mean Platelet Volume 7.9 6.9-10.8 fL Neutrophils (%) (Auto) 77.6 37.0-80.0 % Lymphocytes (%) (Auto) 12.7 10.0-50.0 % Monocytes (%) (Auto) 8.5 0.0-12.0 % Eosinophils (%) (Auto) 1.0 0.0-7.0 % Basophils (%) (Auto) 0.2 0.0-2.0 % Neutrophils # (Auto) 8.9 H 1.6-8.6 10 ^3/uL Lymphocytes # (Auto) 1.5 0.4-5.4 10 ^3/uL Monocytes # (Auto) 1.0 0-1.3 10 ^3/uL Eosinophils # (Auto) 0.1 0-0.8 10 ^3/uL Basophils # (Auto) 0 0-0.2 10 ^3/uL Nucleated Red Blood Cells 0.0 % Sodium Level 140 136-145 mmol/L Potassium Level 3.7 3.5-5.1 mmol/L Chloride Level 108 H 98-107 mmol/L Carbon Dioxide Level 23 20-31 mmol/L Anion Gap 9 5-15 Blood Urea Nitrogen 20 # 9-23 mg/dL Creatinine 0.81 0.550-1.02 mg/dL Glomerular Filtration Rate Calc 75 >90 mL/min BUN/Creatinine Ratio 24.7 H 10.0-20.0 Serum Glucose 103 74-106 mg/dL Calcium Level 9.6 8.7-10.4 mg/dL Total Bilirubin 0.5 0.2-1.0 mg/dL Aspartate Amino Transferase (AST) 18 13-40 U/L Alanine Aminotransferase (ALT) 15 7-40 U/L Alkaline Phosphatase 63 46-116 U/L Total Protein 6.3 5.7-8.2 g/dL Albumin 3.8 3.2-4.8 g/dL Urine Color Light-yellow Yellow Urine Clarity Clear Clear Urine pH 5.0 5.0-9.0 Urine Specific [place] 1.011 1.001-1.035 Urine Protein Negative Negative Urine Ketones Negative Negative Urine Blood Negative Negative /uL Urine Nitrite Negative Negative Urine Bilirubin Negative Negative Urine Urobilinogen Normal Negative mg/dL Urine Leukocyte Esterase Negative Negative /uL Urine RBC <1 0 - 4 /hpf Urine Microscopic WBC 1 0-5 /HPF Urine Squamous Epithelial Cells Few <5 /hpf Urine Bacteria None seen None Seen /hpf Urine Hyaline Casts Many 0 - 2 /lpf Urine Mucus Few None Seen Urine Glucose Normal Normal mg/dL Lactic Acid Level 2.0 0.4-2.0 mmol/L Influenza Type A Antigen Negative Negative Influenza Type B Antigen Negative Negative SARS-CoV-2 Antigen (Rapid) Negative NEGATIVE Microbiology Date/Time Source Procedure Growth Status 01/09/25 18:00 Nose MRSA Screen - Final Complete 01/09/25 14:18 Blood Blood Culture - Preliminary NO GROWTH AFTER 48 HOURS OF INCUBATION. Resulted 01/08/25 19:56 Urine - Catheterized Urine Culture - Final Complete Assessment Cognitive dysfunction, like she has dementia ? Alzheimer's disease Altered mental status Metabolic encephalopathy Hypoxic encephalopathy Dehydration/acute kidney failure Reported stroke Chronic DVT on Eliquis Plan/Recommendation Monitoring Supportive treatment EEG MR head Lipitor profile Vitamin B12, folic acid, TSH Hydration IV antibiotics Eliquis 5 mg b.i.d. Up to chair Physical therapy More recommendation per clinical course Progress: Poor This medical document was created using an electronic medical record system with [employer] dictation system. Although this document has been carefully reviewed, there may still be some phonetic and typographical errors. These areas are purely typographical due to imperfections of the software programs, and do not reflect any compromise in the patient's medical care. Plan discussed with: Daughter, Other NEMO HURD MD Jan 11, 2025 20:56
[2025-01-11] MEDS: ZOLPIDEM TARTRATE 5 MG TAB PO PRN (21:35)
--- NOTE | 2025-01-11 21:36 | DVHPN2 ---
Progress Note - Dictate Date Seen: Jan 11, 2025 Medical Necessity Reason Pt with a Central, PICC or Fol: Yes Subjective Patient was seen and evaluated in follow up. Patient is awake and confused. WBC 11.5. Blood cultures grew gram-positive cocci in clusters. Echocardiogram shows an EF of 65%, mild LVH, mild LV diastolic dysfunction, moderately dilated RV and aortic sclerosis. Telemetry reviewed. vital signs Vital Sign Date Time Temp Pulse Resp B/P (MAP) Pulse Ox O2 Delivery O2 Flow Rate FiO2 01/11/25 21:00 98.2 56 18 114/60 (78) 96 98.2 01/11/25 08:00 Room Air* 0 21 Total Intake and Output 01/10/25 01/10/25 01/11/25 15:00 23:00 07:00 Intake Total 500 ml 500 ml Output Total 1000 ml 1000 ml Balance -500 ml -500 ml medications Current Medications Medications Dose Ordered Sig/Gonzalo Route Start Time Stop Time Status Last Admin Dose Admin Ceftriaxone Sodium 50 ml @ 100 mls/hr Q24H IV 01/09/25 21:00 01/10/25 21:06 100 MLS/HR Sodium Chloride 10 ml Q8HR IV 01/09/25 06:00 01/11/25 14:00 10 ML Acetaminophen/ Hydrocodone Bitart 1 tab Q4HP PRN PO 01/09/25 00:15 Ondansetron HCl 4 mg Q4HP PRN IV 01/09/25 00:15 Docusate Sodium 100 mg BIDPRN PRN PO 01/09/25 00:15 Acetaminophen 650 mg Q6HP PRN PO 01/09/25 00:15 Nitroglycerin 0.4 mg Q5MINP PRN SL 01/09/25 00:15 Morphine Sulfate 2 mg Q30M PRN IV 01/09/25 00:15 Apixaban 5 mg BID PO 01/09/25 10:00 01/11/25 10:32 5 MG Sodium Chloride 1,000 ml @ 60 mls/hr [id number] IV 01/09/25 20:45 01/11/25 05:32 60 MLS/HR Vancomycin HCl 0 ml @ 0 mls/hr UD IV 01/10/25 12:00 Vancomycin HCl 250 ml @ 200 mls/hr Q18H IV 01/11/25 06:00 01/11/25 05:25 200 MLS/HR Zolpidem Tartrate 10 mg HSPRN PRN PO 01/11/25 18:15 objective GENERAL: Awake, altered. LUNGS: Clear. CARDIOVASCULAR: Heart sounds are good. ABDOMEN: Soft. laboratory and microbiology Laboratory Tests 01/11/25 06:54 Test 01/11/25 06:54 Range/Units Serum Glucose 103 74-106 mg/dL Problem List Trigeminy. Hypotension. MAXWELL on CKD. AMS. Sepsis bacteremia. Assessment/Plan Continued all current supportive medical care. Morphine and [place] for pain management. Eliquis. IV antibiotics as ordered. Nitro SL. Additional plan as per the hospital course. Dietary Evaluation Review Recommendations by RD: Dietary education by RD Comments: 1) Consider stool softeners/laxatives to resolve constipation 2) Promote adequate hydration d/t hx of frequent UTIs 3) Refer to outpatient RD for weight management d/t morbide obesity 4) Continue to monitor PO intake, labs, and skin intregrity Expected Outcomes/Goals: 1) appetite and labs to improve 2) f/u in 3-5 days Plan discussed with: Other LETICIA MAGANA MD Jan 11, 2025 21:36
[2025-01-11] MEDS ORDERED: LORazepam 2MG/ML-1ML VIAL IV PRN (22:45)
[2025-01-11 23:01] LABS: Triglycerides 64 mg/dL (< 150)
[2025-01-11 23:02] LABS: LDL Cholesterol 73 mg/dL (< 100)
[2025-01-11 23:03] LABS: Cholesterol 117 mg/dL (< 200)
[2025-01-11 23:05] LABS: HDL Cholesterol 32 mg/dL (40-59)
[2025-01-12] VITALS (8 sets, daily range): BP systolic 111–139; BP diastolic 58–73; PULSE 51–63; RESP 18–20; TEMP 97.5–98.6; O2SAT 95–99
[2025-01-12 08:01] LABS: Basophils # (auto) 0.1 10 ^3/uL (0-0.2); Basophils % (auto) 0.6 % (0.0-2.0); Eosinophils # (auto) 0.4 10 ^3/uL (0-0.8); Eosinophils % (auto) 3.8 % (0.0-7.0); Hematocrit 35.3 % (36.0-46.0); Hemoglobin 11.7 g/dL (12.2-16.2); Lymphocytes # (auto) 2.1 10 ^3/uL (0.4-5.4); Lymphocytes % (auto) 19.3 % (10.0-50.0); Mean Corpuscular Hgb Conc. 33.1 g/dL (32.0-36.0); Mean Corpuscular Volume 96.7 fL (80.0-100.0); Monocytes % (auto) 8.8 % (0.0-12.0); Neutrophils # (auto) 7.3 10 ^3/uL (1.6-8.6); Neutrophils % (auto) 67.5 % (37.0-80.0); Platelet Count (auto) 336 10^3/uL (140-450); Red Blood Cells 3.66 10^6/uL (4.0-5.20); Red Cell Distribution Width 13.2 % (11.8-14.3); White Blood Cell 10.9 10^3/uL (4.4-10.8)
[2025-01-12 08:56] LABS: Free T4 (Free Thyroxine) 1.34 ng/dL (0.89-1.76)
[2025-01-12 09:31] LABS: Folate (Folic Acid) 41.02 ng/mL (>5.38)
--- NOTE | 2025-01-12 10:47 | DVHPN2 ---
Progress Note - Dictate Date Seen: Jan 12, 2025 Medical Necessity Reason Pt with a Central, PICC or Fol: Yes Subjective Ms. Uzma Brooks is a 74 years old right-handed female with a history of hypertension, diabetes, stroke, she was admitted on 01/08/2025 with a chief company of hypotension, ALOC I have seen and examined the patient, I have discussed with her nurse, she was better, awake, oriented to person, place, she knows the month Reasonable social skills Urinalysis, 01/08/2025: WBC: 1, urine leukocyte esterase: Negative WBC 01/21/25: 11.5/11.7/332/97.6 BUN/CR, 01/08/2025: 80/2.31, 01/09/2025:58/1.71, 01/11/2025: 20/0.81 Liver function tests, 01/11/2025: Unremarkable TG/HDL/LDL/HDL, 01/11/2025: 64/117/73/32 Vitamin B12, 01/12/2025: 662 Folic acid, 01/12/2025: 41.02 TSH 01/12/2025: 1.19 FT4, 01/12/2025: 1.34 Chest x-ray, 01/08/2025: No acute cardiopulmonary abnormality CT head, 01/12/16: 1. No evidence for acute intracranial pathology. 2. Mild generalized volume loss. 3. Small chronic lacunar infarcts versus perivascular spaces in the left frontal periventricular region. 4. Paranasal sinus disease, detailed above vital signs Vital Sign Date Time Temp Pulse Resp B/P (MAP) Pulse Ox O2 Delivery O2 Flow Rate FiO2 01/12/25 09:00 98.6 58 20 111/58 (75) 96 98.6 01/11/25 08:00 Room Air* 0 21 Total Intake and Output 01/11/25 01/11/25 01/12/25 15:00 23:00 07:00 Intake Total 200 ml 125 ml Output Total 600 ml 500 ml Balance -400 ml -375 ml medications Current Medications Medications Dose Ordered Sig/Gonzalo Route Start Time Stop Time Status Last Admin Dose Admin Ceftriaxone Sodium 50 ml @ 100 mls/hr Q24H IV 01/09/25 21:00 01/11/25 21:34 100 MLS/HR Sodium Chloride 10 ml Q8HR IV 01/09/25 06:00 01/12/25 06:02 10 ML Acetaminophen/ Hydrocodone Bitart 1 tab Q4HP PRN PO 01/09/25 00:15 Ondansetron HCl 4 mg Q4HP PRN IV 01/09/25 00:15 Docusate Sodium 100 mg BIDPRN PRN PO 01/09/25 00:15 Acetaminophen 650 mg Q6HP PRN PO 01/09/25 00:15 Nitroglycerin 0.4 mg Q5MINP PRN SL 01/09/25 00:15 Morphine Sulfate 2 mg Q30M PRN IV 01/09/25 00:15 Apixaban 5 mg BID PO 01/09/25 10:00 01/11/25 21:34 5 MG Sodium Chloride 1,000 ml @ 60 mls/hr [id number] IV 01/09/25 20:45 01/11/25 22:45 60 MLS/HR Vancomycin HCl 0 ml @ 0 mls/hr UD IV 01/10/25 12:00 Vancomycin HCl 250 ml @ 200 mls/hr Q18H IV 01/11/25 06:00 01/11/25 23:30 200 MLS/HR Zolpidem Tartrate 10 mg HSPRN PRN PO 01/11/25 18:15 01/11/25 21:35 10 MG Lorazepam 1 mg ONCE PRN IV 01/11/25 22:45 objective General: the patient is well developed and nourished. No acute distress. MENTAL STATUS: Subjective SPEECH, LANGUAGE, HIGHER CORTICAL FUNCTION: no aphasia or dysathria. CRANIAL NERVES: Intact visual hughes to confrontation. Pupils are equal, round and reactive. EOMs full and conjugate. Facial sensation intact in all three divisions bilaterally. Mandibular strength intact. Facial muscles symmetrical and strength intact. SENSATION: Sensation to touch and pinprick is ok MOTOR: Normal tone in the upper and lower extremity. Normal muscle bulk. No fasciculations. No abnormal movements or posturing. She moves the arms and legs. REFLEXES: Deep tendon reflexes are symmetrical. No pathological reflexes. CEREBELLAR/COORDINATION: Unremarkable Finger-nose test bilaterally GAIT/STATION: deferred. laboratory and microbiology Laboratory Tests 01/12/25 07:24 01/11/25 06:54 Test 01/11/25 06:54 Range/Units Serum Glucose 103 74-106 mg/dL Problem List Cognitive dysfunction, like she has dementia ? Alzheimer's disease Altered mental status Metabolic encephalopathy Hypoxic encephalopathy Dehydration/acute kidney failure Reported stroke Chronic DVT on Eliquis Assessment/Plan Monitoring Supportive treatment EEG MR head Hydration IV antibiotics Eliquis 5 mg b.i.d. Up to chair Physical therapy More recommendation per clinical course This medical document was created using an electronic medical record system with [employer] dictation system. Although this document has been carefully reviewed, there may still be some phonetic and typographical errors. These areas are purely typographical due to imperfections of the software programs, and do not reflect any compromise in the patient's medical care. Prognosis poor Dietary Evaluation Review Recommendations by RD: Dietary education by RD Comments: 1) Consider stool softeners/laxatives to resolve constipation 2) Promote adequate hydration d/t hx of frequent UTIs 3) Refer to outpatient RD for weight management d/t morbide obesity 4) Continue to monitor PO intake, labs, and skin intregrity Expected Outcomes/Goals: 1) appetite and labs to improve 2) f/u in 3-5 days Plan discussed with: Other Total Time (mins): 35 NEMO HURD MD Jan 12, 2025 10:47
--- NOTE | 2025-01-12 12:38 | DVHPN2 ---
Reviewed: Care Plan, H&P, Labs, Medications, Previous Orders, Radiology Changes from previous H/P or p: No Changes Eyes: No Pain, No Vision change, No Conjunctivae inflammation, No Eyelid inflammation, No Other, No Redness ENT: No Ear pain, No Ear discharge, No Nose pain, No Nose discharge, No Nose congestion, No Mouth pain, No Mouth swelling, No Throat pain, No Throat swelling, No Other Cardiovascular: No Chest Pain, No Palpitations, No Orthopnea, No Paroxysmal Noc. Dyspnea, No Edema, No Lt Headedness, No Other Respiratory: No Cough, No Dry, No Shortness of breath, No SOB with excertion, No Wheezing, No Hemoptysis, No Pleuritic Pain, No Sputum, No Other Gastrointestinal: No Nausea, No Vomiting, No Abdominal Pain, No Diarrhea, No Constipation, No Melena, No Hematochezia, No Other Genitourinary: No Dysuria, No Frequency, No Incontinence, No Hematuria, No Retention, No Other Musculoskeletal: No other, No neck pain, No shoulder pain, No arm pain, No back pain, No hand pain, No leg pain, No foot pain Skin: No Rash, No Lesions, No Jaundice, No Bruising, No Other Objective Vitals Vital Signs Date Time Temp Pulse Resp B/P (MAP) Pulse Ox O2 Delivery O2 Flow Rate FiO2 01/12/25 09:00 98.6 58 20 111/58 (75) 96 98.6 01/11/25 08:00 Room Air* 0 21 Intake/Output Intake and Output 01/12/25 07:00 Intake Total 325 ml Output Total 1100 ml Balance -775 ml Intake Oral 325 ml Output Urine Total 1100 ml Medications Current Medications Medications Dose Ordered Sig/Gonzalo Route Start Time Stop Time Status Last Admin Dose Admin Ceftriaxone Sodium 50 ml @ 100 mls/hr Q24H IV 01/09/25 21:00 01/11/25 21:34 100 MLS/HR Sodium Chloride 10 ml Q8HR IV 01/09/25 06:00 01/12/25 06:02 10 ML Acetaminophen/ Hydrocodone Bitart 1 tab Q4HP PRN PO 01/09/25 00:15 Ondansetron HCl 4 mg Q4HP PRN IV 01/09/25 00:15 Docusate Sodium 100 mg BIDPRN PRN PO 01/09/25 00:15 Acetaminophen 650 mg Q6HP PRN PO 01/09/25 00:15 Nitroglycerin 0.4 mg Q5MINP PRN SL 01/09/25 00:15 Morphine Sulfate 2 mg Q30M PRN IV 01/09/25 00:15 Apixaban 5 mg BID PO 01/09/25 10:00 01/11/25 21:34 5 MG Sodium Chloride 1,000 ml @ 60 mls/hr [id number] IV 01/09/25 20:45 01/11/25 22:45 60 MLS/HR Vancomycin HCl 0 ml @ 0 mls/hr UD IV 01/10/25 12:00 Vancomycin HCl 250 ml @ 200 mls/hr Q18H IV 01/11/25 06:00 01/11/25 23:30 200 MLS/HR Zolpidem Tartrate 10 mg HSPRN PRN PO 01/11/25 18:15 01/11/25 21:35 10 MG Lorazepam 1 mg ONCE PRN IV 01/11/25 22:45 Laboratory Results Laboratory Tests 01/11/25 06:54 01/12/25 07:24 Urinalysis Test 01/08/25 19:56 Urine Color Light-yellow (Yellow) Urine Clarity Clear (Clear) Urine pH 5.0 (5.0-9.0) Urine Specific [place] 1.011 (1.001-1.035) Urine Protein Negative (Negative) Urine Ketones Negative (Negative) Urine Blood Negative /uL (Negative) Urine Nitrite Negative (Negative) Urine Bilirubin Negative (Negative) Urine Urobilinogen Normal mg/dL (Negative) Urine Leukocyte Esterase Negative /uL (Negative) Urine RBC <1 /hpf (0 - 4) Urine Microscopic WBC 1 /HPF (0-5) Urine Squamous Epithelial Cells Few /hpf (<5) Urine Bacteria None seen /hpf (None Seen) Urine Hyaline Casts Many /lpf (0 - 2) Urine Mucus Few (None Seen) Urine Glucose Normal mg/dL (Normal) Microbiology Microbiology Date/Time Source Procedure Growth Status 01/09/25 18:00 Nose MRSA Screen - Final Complete 01/09/25 14:18 Blood Blood Culture - Preliminary NO GROWTH AFTER 48 HOURS OF INCUBATION. Resulted 01/08/25 19:56 Urine - Catheterized Urine Culture - Final Complete Labs and/or images reviewed: Labs reviewed by me, Image(s) reviewed by me Assessment/Plan Assessment/Plan Sepsis unknown etiology secondary to bacteremia Bacteremia with MRSA: Vancomycin 1 g IV daily Acute Generalized weakness Acute kidney injury versus CKD, significantly improved nephrology consult appreciated Acute Hypotension , resolving Acute metabolic encephalopathy Acute dehydration Leukocytosis Hypotension Hypercholesterolemia History of CVA with right-sided hemiplegia Sydnee test negative Flu test negative [id number] Edilia [phone] who lives with the patient is at the bedside Son Bao [phone] who lives in [place] was at bedside in the emergency room on 01-09-25 Time Spent 50 minutes Advanced care planning time 20 minutes Patient is full code Plan discussed with: Patient My Orders Orders - TAD KELSEY MD Procedure Category Date Status Time * Neurology Consult CONS 01/11/25 Transmitted 13:35 Zolpidem Tartrate PHA 01/11/25 In Process (Ambien) 18:15 Date of Service: Jan 12, 2025 Billing Provider: TAD KELSEY MD Common Visit Codes: [id number] INP/OBS CARE(HIGH) Secondary Visit Codes: [id number] CARE PLAN 30 MINUTES TAD KELSEY MD Jan 12, 2025 12:38
--- NOTE | 2025-01-12 12:52 | DVHDS2 ---
Discharge Summary Date of Admission Jan 09, 2025 at 00:02 Date of Discharge: Jan 12, 2025 Admitting Diagnosis Altered mental status Wounds: None Labs/Diagnostic Data: Laboratory Results Test 01/12/25 07:24 01/11/25 06:54 01/08/25 19:56 01/08/25 19:30 White Blood Count 10.9 10^3/uL (4.4-10.8) Red Blood Count 3.66 10^6/uL (4.0-5.20) Hemoglobin 11.7 g/dL (12.2-16.2) Hematocrit 35.3 % (36.0-46.0) Mean Corpuscular Volume 96.7 fL (80.0-100.0) Mean Corpuscular Hemoglobin 32.0 pg (28.0-32.0) Mean Corpuscular Hemoglobin Concent 33.1 g/dL (32.0-36.0) Red Cell Distribution Width 13.2 % (11.8-14.3) Platelet Count 336 10^3/uL (140-450) Mean Platelet Volume 7.7 fL (6.9-10.8) Neutrophils (%) (Auto) 67.5 % (37.0-80.0) Lymphocytes (%) (Auto) 19.3 % (10.0-50.0) Monocytes (%) (Auto) 8.8 % (0.0-12.0) Eosinophils (%) (Auto) 3.8 % (0.0-7.0) Basophils (%) (Auto) 0.6 % (0.0-2.0) Neutrophils # (Auto) 7.3 10 ^3/uL (1.6-8.6) Lymphocytes # (Auto) 2.1 10 ^3/uL (0.4-5.4) Monocytes # (Auto) 1.0 10 ^3/uL (0-1.3) Eosinophils # (Auto) 0.4 10 ^3/uL (0-0.8) Basophils # (Auto) 0.1 10 ^3/uL (0-0.2) Nucleated Red Blood Cells 0.0 % Creatinine 0.66 mg/dL (0.550-1.02) Glomerular Filtration Rate Calc 91 mL/min (>90) Vitamin B12 Level 662 pg/mL (211-911) Folic Acid 41.02 ng/mL (>5.38) Free Thyroxine (T4) Calculated 1.34 ng/dL (0.89-1.76) Sodium Level 140 mmol/L (136-145) Potassium Level 3.7 mmol/L (3.5-5.1) Chloride Level 108 mmol/L (98-107) Carbon Dioxide Level 23 mmol/L (20-31) Anion Gap 9 (5-15) Blood Urea Nitrogen 20 mg/dL (9-23) BUN/Creatinine Ratio 24.7 (10.0-20.0) Serum Glucose 103 mg/dL (74-106) Calcium Level 9.6 mg/dL (8.7-10.4) Total Bilirubin 0.5 mg/dL (0.2-1.0) Aspartate Amino Transferase (AST) 18 U/L (13-40) Alanine Aminotransferase (ALT) 15 U/L (7-40) Alkaline Phosphatase 63 U/L (46-116) Total Protein 6.3 g/dL (5.7-8.2) Albumin 3.8 g/dL (3.2-4.8) Triglycerides Level 64 mg/dL (< 150) Cholesterol Level 117 mg/dL (< 200) LDL Cholesterol 73 mg/dL (< 100) HDL Cholesterol 32 mg/dL (40-59) Thyroid Stimulating Hormone (TSH) 1.19 uIU/mL (0.55-4.78) Urine Color Light-yellow (Yellow) Urine Clarity Clear (Clear) Urine pH 5.0 (5.0-9.0) Urine Specific [place] 1.011 (1.001-1.035) Urine Protein Negative (Negative) Urine Ketones Negative (Negative) Urine Blood Negative /uL (Negative) Urine Nitrite Negative (Negative) Urine Bilirubin Negative (Negative) Urine Urobilinogen Normal mg/dL (Negative) Urine Leukocyte Esterase Negative /uL (Negative) Urine RBC <1 /hpf (0 - 4) Urine Microscopic WBC 1 /HPF (0-5) Urine Squamous Epithelial Cells Few /hpf (<5) Urine Bacteria None seen /hpf (None Seen) Urine Hyaline Casts Many /lpf (0 - 2) Urine Mucus Few (None Seen) Urine Glucose Normal mg/dL (Normal) Lactic Acid Level 2.0 mmol/L (0.4-2.0) Test 01/08/25 00:00 Influenza Type A Antigen Negative (Negative) Influenza Type B Antigen Negative (Negative) SARS-CoV-2 Antigen (Rapid) Negative (NEGATIVE) Other Laboratory Tests 01/12/25 07:24 01/11/25 06:54 Brief Hx & Hospital Course: 74-year-old female with a history of hypertension hypercholesterolemia history of CVA with the right-sided hemiplegia burden from [facility] for altered mental status and confusion. Patient was started on presumed to antibiotic Rocephin for sepsis white count is elevated. Blood cultures came positive for MRSA and vancomycin 1 g IV daily was started which she will receive for three weeks in the halfway facility . The patient had acute kidney injury with severely elevated BUN and creatinine which has completely resolved after IV fluids. Sydnee test negative flu test is negative. patient received physical therapy. Discussed with the patient's son Bao and [id number] Edilia patient has been being discharged to [facility] who her vancomycin for IV for three weeks for bacteremia with MRSA neurology consult by Dr. Rosen. MRI brain and EEG pending at the time of discharge. will follow up on these results. Consults/Reason for consult Neurology Dr. Rosen Cardiology Dr. Swain Operations or Procedures CT head Condition at Discharge: Fair Final Diagnosis/Problems List Sepsis unknown etiology secondary to bacteremia Bacteremia with MRSA: Vancomycin 1 g IV daily Acute Generalized weakness Acute kidney injury versus CKD, significantly improved nephrology consult appreciated Acute Hypotension , resolving Acute metabolic encephalopathy Acute dehydration Leukocytosis Hypotension Hypercholesterolemia History of CVA with right-sided hemiplegia Sydnee test negative Flu test negative Discharge Disposition: Assisted Facility Discharge Instruct/Medications Diet: Cardiac 2g Na,low cholest Activity: Light activity Follow Up/Referral: Follow up with the long-term Medications: Vancomycin 1 g IV daily for three weeks for bacteremia with MRSA see list for other meds 35 (Time Taken For discharge summary 35 minutes) Discharge Statement: "Patient was advised to return to the ER or call 911 if any headaches, dizziness, shortness of breath, chest pain, abdominal pain, bleeding, fevers, or worsening of medical condition. Patient was counseled about treatment plan, medications, possible side effects, patientverbalized understanding. All questions were answered to the best of my ability. This discharge took greater then 30 minutes in planning, reviewing documentation, counseling the patient, and discussing with other team members." ASSESSMENT ASSESSMENT Hospital Course Improved Assessment Sepsis unknown etiology secondary to bacteremia Bacteremia with MRSA: Vancomycin 1 g IV daily Acute Generalized weakness Acute kidney injury versus CKD, significantly improved nephrology consult appreciated Acute Hypotension , resolving Acute metabolic encephalopathy Acute dehydration Leukocytosis Hypotension Hypercholesterolemia History of CVA with right-sided hemiplegia Sydnee test negative Flu test negative Date of Service: Jan 12, 2025 Billing Provider: TAD KELSEY MD Common Visit Codes: 22006-FXJ/OBS DISCH DAY >30min TAD KELSEY MD Jan 12, 2025 12:52
--- NOTE | 2025-01-12 13:11 | DVH ---
EXAMINATION: MRI BRAIN HEAD WO CONTRAST INDICATION: Dementia, stroke COMPARISON: None TECHNIQUE: Multiplanar, multisequence magnetic resonance imaging of the brain was performed without the use of i ntravenous contrast. FINDINGS: There is no restricted diffusion. There is age concordant generalized parenchymal volume loss. There are mild chronic small-vessel ischemic changes in the supratentorial white matter. There are tiny ch ronic lacunar infarcts in the bilateral anterior gomez radiata. There is no evidence of hemorrhage, mass, mass effect or midline shift. There is no hydrocephalus or extra-axial fluid collection. The vi sualized intracranial vasculature demonstrates appropriate flow-voids. The sagittal midline structure s appear unremarkable. The craniocervical junction is within normal limits. The calvarium demonstrate s normal marrow signal. There is a hypoplastic right maxillary sinus with mild mucosal thickening. M astoid air cells are clear. IMPRESSION: 1. There is no acute intracranial process. 2. Mild chronic small-vessel white matter ischemic changes. Tiny chronic lacunar infarcts in the bila teral anterior gomez radiata. HS:Y
[2025-01-12 15:04] LABS: INR 1.09 (0.9-1.15); Partial Thromboplastin Time 28.5 SEC (24.5-34.5); Prothrombin Time 11.5 sec (9.3-11.8)
--- NOTE | 2025-01-12 16:23 | DVHPN2 ---
Progress Note - Dictate Date Seen: Jan 12, 2025 Medical Necessity Reason Pt with a Central, PICC or Fol: Yes Subjective Patient was seen and evaluated in follow up. No overnight events. Patient is more alert today. Patietns family is requesting placemnt ar [facility] for IV antibiotics. MRI brain shows no acute intracranial process. Mild chronic small- vessel white matter ischemic changes. Tiny chronic lacunar infarcts in the bilateral anterior gomez radiata. Telemetry reviewed. vital signs Vital Sign Date Time Temp Pulse Resp B/P (MAP) Pulse Ox O2 Delivery O2 Flow Rate FiO2 01/12/25 13:00 97.8 52 18 129/65 (86) 95 97.8 01/12/25 08:00 Room Air* 0 21 Total Intake and Output 01/11/25 01/11/25 01/12/25 15:00 23:00 07:00 Intake Total 200 ml 125 ml Output Total 600 ml 500 ml Balance -400 ml -375 ml medications Current Medications Medications Dose Ordered Sig/Gonzalo Route Start Time Stop Time Status Last Admin Dose Admin Ceftriaxone Sodium 50 ml @ 100 mls/hr Q24H IV 01/09/25 21:00 01/11/25 21:34 100 MLS/HR Sodium Chloride 10 ml Q8HR IV 01/09/25 06:00 01/12/25 14:00 10 ML Acetaminophen/ Hydrocodone Bitart 1 tab Q4HP PRN PO 01/09/25 00:15 Ondansetron HCl 4 mg Q4HP PRN IV 01/09/25 00:15 Docusate Sodium 100 mg BIDPRN PRN PO 01/09/25 00:15 Acetaminophen 650 mg Q6HP PRN PO 01/09/25 00:15 Nitroglycerin 0.4 mg Q5MINP PRN SL 01/09/25 00:15 Morphine Sulfate 2 mg Q30M PRN IV 01/09/25 00:15 Apixaban 5 mg BID PO 01/09/25 10:00 01/12/25 10:00 5 MG Sodium Chloride 1,000 ml @ 60 mls/hr [id number] IV 01/09/25 20:45 01/11/25 22:45 60 MLS/HR Vancomycin HCl 0 ml @ 0 mls/hr UD IV 01/10/25 12:00 Vancomycin HCl 250 ml @ 200 mls/hr Q18H IV 01/11/25 06:00 01/11/25 23:30 200 MLS/HR Zolpidem Tartrate 10 mg HSPRN PRN PO 01/11/25 18:15 01/11/25 21:35 10 MG Lorazepam 1 mg ONCE PRN IV 01/11/25 22:45 objective GENERAL: Awake, altered. LUNGS: Clear. CARDIOVASCULAR: Heart sounds are good. ABDOMEN: Soft. laboratory and microbiology Laboratory Tests 01/12/25 07:24 01/11/25 06:54 Test 01/11/25 06:54 Range/Units Serum Glucose 103 74-106 mg/dL Problem List Trigeminy. Hypotension. MAXWELL on CKD. AMS. Sepsis bacteremia. Assessment/Plan Continued all current supportive medical care. Morphine and [place] for pain management. Eliquis. IV antibiotics as ordered. Nitro SL. Additional plan as per the hospital course. Dietary Evaluation Review Recommendations by RD: Dietary education by RD Comments: 1) Consider stool softeners/laxatives to resolve constipation 2) Promote adequate hydration d/t hx of frequent UTIs 3) Refer to outpatient RD for weight management d/t morbide obesity 4) Continue to monitor PO intake, labs, and skin intregrity Expected Outcomes/Goals: 1) appetite and labs to improve 2) f/u in 3-5 days Plan discussed with: Patient LETICIA MAGANA MD Jan 12, 2025 16:23
[2025-01-12] MEDS: LIDOCAINE 1% (LOCAL ANESTH.) PF 5ml SDV ID ONE (17:12)
[2025-01-12] MEDS: VANCOMYCIN 1.25GM/250ML 250 ML IV SCH (22:01)
[2025-01-12] MEDS: SODIUM CHLOR 0.9% PF (SALINE LOCK) 10ML VIAL/SYR IV SCH (22:06)
--- NOTE | 2025-01-13 00:15 | DVHEEG2 ---
Neurology EEG Procedural Note Procedural Note EXAM DATE: 01/12/2025 REFERRING DOCTOR: Dr. Hurd TECHNIQUE: Eighteen channels of EEG, 2 channels of EOG, and 1 channel of EKG were recorded using the [employer] 10/20 system. CLINICAL DATA: The patient was referred for an EEG evaluation for the evidence of seizure disorder. MEDICATIONS: See the chart BACKGROUND ACTIVITY: The background activity appeared to be fairly regulated 7- 8 hertz rhythmic waveforms symmetrically distributed over both posterior quadrants and was reactive to external stimuli, intermixed with this was diffuse low amplitude theta activity over both hemispheres ACTIVATION: Hyperventilation: Not done Photic Stimulation: Not done Sleep: Not seen IMPRESSION: This is a mildly abnormal EEG, this EEG is seen in mild cerebral dysfunction due to metabolic/hypoxic encephalopathy or medication effect, please correlate clinically The EKG channel showed a regular heart rate of 54/min[place] [address] NEMO HURD MD Jan 13, 2025 00:15
[2025-01-13 01:00] VITALS: BP 120/66; PULSE 52; RESP 19; TEMP 98.8; O2SAT 96
[2025-01-13 05:00] VITALS: BP 128/73; PULSE 65; RESP 19; TEMP 98.1; O2SAT 93
[2025-01-13 08:00] VITALS: PULSE 54
[2025-01-13 09:00] VITALS: BP 129/83; PULSE 66; RESP 15; TEMP 97.4; O2SAT 99
[2025-01-13 09:21] LABS: Anion Gap 10 (5-15); Carbon Dioxide 21 mmol/L (20-31); Potassium 3.7 mmol/L (3.5-5.1); Sodium 142 mmol/L (136-145)
[2025-01-13 09:22] LABS: Calcium 9.7 mg/dL (8.7-10.4)
[2025-01-13 09:23] LABS: Chloride 111 mmol/L (98-107)
[2025-01-13 09:27] LABS: Blood Urea Nitrogen 13 mg/dL (9-23); Glucose 82 mg/dL (74-106)
--- NOTE | 2025-01-13 22:14 | DVHPN2 ---
Progress Note - Dictate Date Seen: Jan 13, 2025 Medical Necessity Reason Pt with a Central, PICC or Fol: Yes Subjective Patient was seen and evaluated in follow up. Patient has no new complaints at this time. Patient denies any cardiac symptoms. Patient is cardiac stable for discharge. Telemetry reviewed. vital signs Vital Sign Date Time Temp Pulse Resp B/P (MAP) Pulse Ox O2 Delivery O2 Flow Rate FiO2 01/13/25 09:00 97.4 66 15 129/83 (98) 99 97.4 01/13/25 08:00 Room Air* 0 21 Total Intake and Output 01/12/25 01/12/25 01/13/25 15:00 23:00 07:00 Intake Total 100 ml 125 ml Output Total 425 ml 550 ml Balance -325 ml -425 ml medications Current Medications Medications Dose Ordered Sig/Gonzalo Route Start Time Stop Time Status Last Admin Dose Admin Ceftriaxone Sodium 50 ml @ 100 mls/hr Q24H IV 01/09/25 21:00 01/12/25 21:06 100 MLS/HR Sodium Chloride 10 ml Q8HR IV 01/09/25 06:00 01/13/25 06:00 10 ML Acetaminophen/ Hydrocodone Bitart 1 tab Q4HP PRN PO 01/09/25 00:15 Ondansetron HCl 4 mg Q4HP PRN IV 01/09/25 00:15 Docusate Sodium 100 mg BIDPRN PRN PO 01/09/25 00:15 Acetaminophen 650 mg Q6HP PRN PO 01/09/25 00:15 Nitroglycerin 0.4 mg Q5MINP PRN SL 01/09/25 00:15 Morphine Sulfate 2 mg Q30M PRN IV 01/09/25 00:15 Apixaban 5 mg BID PO 01/09/25 10:00 01/13/25 09:00 5 MG Sodium Chloride 1,000 ml @ 60 mls/hr [id number] IV 01/09/25 20:45 01/13/25 09:00 60 MLS/HR Vancomycin HCl 0 ml @ 0 mls/hr UD IV 01/10/25 12:00 Zolpidem Tartrate 10 mg HSPRN PRN PO 01/11/25 18:15 01/12/25 22:01 10 MG Lorazepam 1 mg ONCE PRN IV 2/10/25 22:45 Sodium Chloride 10 ml QSHIFT@10,22 IV 01/12/25 22:00 01/13/25 09:01 10 ML Vancomycin HCl 250 ml @ 200 mls/hr Q18H IV 01/12/25 22:00 01/12/25 22:01 200 MLS/HR objective GENERAL: Awake, altered. LUNGS: Clear. CARDIOVASCULAR: Heart sounds are good. ABDOMEN: Soft. laboratory and microbiology Laboratory Tests 01/13/25 08:16 01/12/25 07:24 Test 01/13/25 08:16 Range/Units Serum Glucose 82 74-106 mg/dL Problem List Trigeminy. Hypotension. MAXWELL on CKD. AMS. Sepsis bacteremia. Assessment/Plan Continued all current supportive medical care. Morphine and [place] for pain management. Eliquis. IV antibiotics as ordered. Nitro SL. Additional plan as per the hospital course. Dietary Evaluation Review Recommendations by RD: Dietary education by RD Comments: 1) Consider stool softeners/laxatives to resolve constipation 2) Promote adequate hydration d/t hx of frequent UTIs 3) Refer to outpatient RD for weight management d/t morbide obesity 4) Continue to monitor PO intake, labs, and skin intregrity Expected Outcomes/Goals: 1) appetite and labs to improve 2) f/u in 3-5 days Plan discussed with: Patient LETICIA MAGANA MD Jan 13, 2025 12:28
== END 2025-01-13 14:29 | DRG 871 ==
LOC: EDBD 18:34 → EDUNIT# 18:34 → ER 18:34 → TELE 01-09 00:02 → TELE-WESTW 01-09 00:11 → TELE 01-09 00:11 → TELE-WESTW 01-09 16:09 → TELE 01-12 15:24 → WEST WING 01-12 15:45 → OVERFLOW 01-13 13:16 → TELE-WESTW 01-13 13:31
PROVIDERS: ADMIT Nurse Practitioner Family; ATTEND Family Medicine
PROC: 02HV33Z Insertion of Infusion Device into Superior Vena Cava, Percutaneous Approach (ICD-10-PCS; principal; 2025-01-12)
PROC: B548ZZA Ultrasonography of Superior Vena Cava, Guidance (ICD-10-PCS; 2025-01-12)
DX: A41.02 Sepsis due to Methicillin resistant Staphylococcus aureus (principal); G93.41 Metabolic encephalopathy; N17.0 Acute kidney failure with tubular necrosis; G93.1 Anoxic brain damage, not elsewhere classified; I69.351 Hemiplegia and hemiparesis following cerebral infarction affecting right dominant side; E86.0 Dehydration; Z20.822 Contact with and (suspected) exposure to COVID-19; I95.9 Hypotension, unspecified; N18.9 Chronic kidney disease, unspecified; E11.22 Type 2 diabetes mellitus with diabetic chronic kidney disease; E66.9 Obesity, unspecified; E78.00 Pure hypercholesterolemia, unspecified; I49.3 Ventricular premature depolarization; I12.9 Hypertensive chronic kidney disease with stage 1 through stage 4 chronic kidney disease, or unspecified chronic kidney disease; Z68.36 Body mass index [BMI] 36.0-36.9, adult; Z74.01 Bed confinement status; Z79.01 Long term (current) use of anticoagulants; Z80.8 Family history of malignant neoplasm of other organs or systems; Z87.440 Personal history of urinary (tract) infections; Z79.4 Long term (current) use of insulin; Z79.899 Other long term (current) drug therapy
CPT/HCPCS: 36415; 36569; 70551; 71045; 76937; 80048; 80053; 80061; 80202; 81001; 82565; 82607; 82746; 83605; 84439; 84443; 85025; 85610; 85730; 87040; 87077; 87081; 87086; 87186; 87426; 87804; 93005; 93306; 95819; 96361; 96365; 96368; 97163; 99291; G0378